=== PATIENT | female | born 1990 | race Caucasian/White ===

== ENCOUNTER → 2019-12-05 10:12 | Outpatient (CLI) | payer BC, SELFPAY ==
--- NOTE | ~2019-12-05 | US_ITS ---
EXAMINATION: US OB transvaginal DATE: 12/05/2019 10:36 INDICATION: First trimester dating TECHNIQUE: Real-time pelvic transabdominal and transvaginal ultrasound was performed. COMPARISON: None. FINDINGS: The uterus measures 8.1 x 4.0 x 5.1 cm. There is no intrauterine gestational sac. There is however a gestational sac of the left adnexa. A yolk sac is identified. heart motion is identi fied measuring 185 beats per minute (bpm) by M-mode Doppler. The crown rump length measures 2.2 cm , which correlates with an estimated gestational age of 8 weeks and 6 day(s) (+/-) 6 day(s). The right ovary measures 2.2 x 1.8 x 2.9 cm. The left ovary measures 4.7 x 3.5 x 3.7 cm. There is a s mall volume of free fluid in the pelvis. IMPRESSION: 1. Ectopic of the left adnexa. These findings were discussed with Kymberly Mcclelland at 1045 hours on 12/05/2019. Reviewed, dictated and finalized at location A. IMPRESSION: 1. Ectopic of the left adnexa. These findings were discussed with Dr. Dania Burrows M.D. at 1045 hours on 12/05/2019.
== END ==
PROVIDERS: Visit Provider Obstetrics & Gynecology
DX: O26.851 Spotting complicating pregnancy, first trimester (principal); Z3A.00 Weeks of gestation of pregnancy not specified
CPT/HCPCS: 76817

== ENCOUNTER 2019-12-05 12:09 | Day surgery (SDC) | payer BC, SELFPAY ==
[2019-12-05] VITALS (10 sets, daily range): BP systolic 103–121; BP diastolic 57–65; PULSE 57–91; RESP 12–20; TEMP 36.4–37.6; O2SAT 95–100; BMI 32.1
--- NOTE | 2019-12-05 12:21 | PM.IMHP ---
H&P: HPI History of Present Illness Chief complaint: Ectopic Narrative: Mel Gold is a 29 year old female , called office today with c/o of LLQ pain and spotting. Per pt her Normal LMP on 09/28/2019 and had light cycle on 10/27/2019 . pt felt nauseated and so took home UPT on 11/29/2019 and positive and called office on 12/01 with spotting. Pt had B HCG Quant [place] 12/01 and was [id number]. and blood type A positive and so US was ordered. Pt went for US today and s/o Gestational sac in left adenexa with FHT of 185. No gestational sac in uterus.Pt was seen in office by my partner Dr Cornejo in office and was informed about the result.Treatment options discussed with pt by Dr Cornejo and will proceed with Daignostic laproscopy , treatment of ectopic vs laprotomy. Pt agreed with plan and was snet to hospital. I came and evaluated pt. Pt c/o spotting an LLQpain. denies fever/chills/SOB. Again treatment options discussed and pt opted for surgery. Surgery discussed in detail as well as risk of procedure i.e infection, bleeding may require BT, injury to bowel/bladder/ureter/ adjacent structure, anesthesia risk, can be life threatening. Pt voiced verbalized. All question answered and informed consent obtained. Review of Systems Constitutional: Constitutional: Reports no additional constitutional complaints Cardiovascular: Cardiovascular: Reports no additional cardiovascular complaints Respiratory: Respiratory: Reports no additional respiratory complaints Gastrointestinal: Gastrointestinal: Reports no additional gastrointestinal complaints Genitourinary: Genitourinary: Reports as per HPI Meds Home Medications and Allergies Home Medications Medication Instructions Recorded Confirmed Type PNV cmb#95-ferrous fumarate-FA 1 tablet PO DAILY 12/05/19 12/05/19 History [] cetirizine [Zyrtec] 10 mg PO DAILY 12/05/19 12/05/19 History docusate sodium [Colace] 100 mg PO DAILY 12/05/19 12/05/19 History ferrous sulfate 325 mg PO DAILY 12/05/19 12/05/19 History omega 5-wgn-axh-fish oil [Fish Oil] 1 cap PO DAILY 12/05/19 12/05/19 History Allergies Allergy/AdvReac Type Severity Reaction Status Date / Time No Known Allergies Allergy Verified 12/05/19 12:32 Exam Const: General: comfortable and no acute distress Resp: Effort & Inspection: normal respiratory effort Auscultation: clear to auscultation bilaterally Cardio: Rate: regular rate Rhythm: regular rhythm GI: GI Palp: Yes Soft to palpation and Yes Tenderness to palpation present (GI) (LLQ) Assessment and Plan Assessment and plan (1) Ectopic : Onset Date: ~12/05/19 Code(s): O00.90 - Unspecified ectopic without intrauterine Status: Acute Assessment and Plan: will proceed with Diagnostic laprocopy, treatment of ectopic vs laprotomy.
[2019-12-05] MEDS: LACTATED RINGERS 1,000 ML 30 ML IV CONT ×2 (12:35→15:15)
--- NOTE | 2019-12-05 12:44 | WPDANESEPPF ---
Anes - Initial Pre Proc Eval Procedure: Operation Date: 12/05/19 12:30 Proposed Procedures p Diagnostic Laparoscopy, Possible Left Salpingectomy - Ashleigh Walker MD Date/Time: 12/05/19 12:44 Surgeon: Ashleigh Walker MD Pre Op Diagnosis: Ectopic Patient Data Age: 29 Gender: F Height: Weight: Allergies Allergy/AdvReac Type Severity Reaction Status Date / Time No Known Allergies Allergy Verified 12/05/19 12:32 Patient hx anesthesia problems: none Family hx anesthesia problems: none Anes - Eval Final PreProcedure Day of Procedure 12/05/19 12:44 Patient weight: normal Heart: regular rate and rhythm Lungs: clear to auscultation and normal air movement Airway: Mallampati scale class II Neurological: alert and oriented Last oral intake: 4 hours ASA classification: II Emergent: no Anesthetic plan: proceed Anesthesia type and monitoring: general ETT Informed Consent: The patient's anesthetic plan and its attendant risks and benefits were discussed with the patient/family/POA. Questions were solicited and answers provided to the satisfaction of the patient/family/POA.
[2019-12-05 12:48] LABS: Hematocrit 39.7 % (37.0-47.0); Hemoglobin 13.2 g/dL (12.0-15.0); Mean Corpuscular HGB Conc 33.2 g/dl (32-36); Mean Corpuscular Hemoglobin 30.3 pg (26-34); Mean Corpuscular Volume 91.1 fl (80-100); Mean Platelet Volume 12.9 fl (7.4-10.4); Platelet Count Result 145 k/mm3 (150-375); Red Blood Count 4.36 M/mm3 (4.2-5.4); Red Cell Distribution Width 11.7 % (11.5-14.5); White Blood Count 6.8 K/mm3 (4.5-10.0)
--- NOTE | 2019-12-05 14:55 | SUR.OPER ---
DIAG. LAP TO OPEN AT 4175
--- NOTE | 2019-12-05 14:57 | SUR.OPER ---
NO LOCAL GIVEN
--- NOTE | 2019-12-05 15:05 | P.OPB_ITS ---
Procedure Note - Brief Procedure Note - Brief Date of procedure: 12/05/19 Pre-op diagnosis: Ectopic Post-op diagnosis: same Procedure performed: attempeted diagnostic laproscopy converted to laprotomy, left salpingectomy with ectopic Implants: None Anesthesia: GLMA Surgeon: Ashleigh Walker MD Filter Assembler: Dr Flores Estimated blood loss (mL): 100 IV fluids (mL): 1,000 Drains: No Packing: No Pathology: yes (left fallopian tube with ectopic) Complications: No immediate complications Condition: stable Disposition: floor
--- NOTE | 2019-12-05 15:08 | PM.PROC ---
Procedure Note - Detailed Date of procedure: 12/06/19 Pre-op diagnosis: Ectopic Post-op diagnosis: same Procedure performed: Attempted laproscopy, converted to laprotomy, Left salpingectomy Description of procedure: Pt taken to OR and General anesthesia instituted.Pt given dorsa lithotomy position. Pt prepped and drapped in sterile fashion. Time out performed. Sterile speculum placed in vagina and anterior lip of cervix caught with single tooth tenaculum. Hulka retractor placed for means of uterine manipulation..Tenaculum and speculum removed. Her catheter placed under sterile technique.Attention turned to Abdomen. Infraumbilial incision made with scalpel and with help of veres needle after confirming placement in cavity with saline drop. Puemoperitoneum acheived. And 5 millimeter trocar under direct visualization was introduced. trocar sleeve removed and laparoscope introduced. At this time noted that the laparoscope was still in the subcutaneous layer closed the fascia so the longer trocar was introduced under direct visualization . still having difficulty to visualize the abdominal cavity and it the thought process was that the laparoscope was not into the abdominal cavity. at this time thought that we could approach to the left upper quadrant and a 5 millimeters trocar introduced under direct visualization. Still having difficulty to visualize the abdominal cavity.Dr Cornejo was called and she also noticed difficulty and so at this time decided to convert into the laparotomy. Pfannenstiel skin incision was made with the scalpel and carried to the underlying layer of fascia fascia was incised in the midline and extended laterally with the help of scissors. Rectus muscle seperated in midline and and peritoneum identified and peritoneal cavity entered bluntly and was extended superiorly and inferiorly. Patient was given extended but position at this time head of the uterine manipulator uterus was pushed upwards and towards incision opening and the left fallopian tube was followed. At this time the ectopic the was noted in the left fallopian tube . a small incision was then made on the left fallopian tube with bovie on the antimesenteric side and fetus delivered .With help of tissue forceps gently tried to remove rest of product , and the fallopian tube started bleeding more and than decision made for salpingectomyLeppy forcept x 2 applied on fallopian tube close to cornua and tube resected and secured with O Vicryl. and excellent hemostasis noted. Uterus appeared to be within normal left followed by left ovary and right fallopian tube and right ovary appeared to be normal. patient was reversed from the trendelenberg position .Hemostatic agent applied on operative site. fascia was approximated with 0 Polysorb. Subcutaneous layer was approximated with 3-0 Polysorb. Skin was approximated with 4 -0Monocryl and Dermabond. Laparoscopic port site was also approximated with the Erin Monocryl and Dermabond. The uterine manipulator was removed from the uterus. Her catheter was removed. Patient tolerated procedure well. Sponge lap needle counts correct x2. Patient was taken to the recovery room awake in stable condition. Anesthesia: GLMA Surgeon: Ashleigh Walker MD Airline Security Representative: Dr Cornejo Estimated blood loss (mL): 100 IV fluids (mL): 1,000 Urine output (mL): 100 Drains: No Packing: No Pathology: yes (left fallopian tube) Complications: No immediate complications Condition: stable Disposition: PACU Findings: left fallopian tube with ectopic
[2019-12-05] MEDS: ceFAZolin 2 GM/D5W 50 ML 2 GM/50 ML BAG IVPB (15:30)
--- NOTE | 2019-12-05 17:35 | ADMGEN ---
This patient, Mel Gold, was admitted to 2 Medical Room 259-01. Patient/family oriented to hospital policies and general routines including ID bracelet, bed and alarms, visiting hours, pain management, procedures, bathroom and other care routines, personal items, smoking policy, room service/diet, and visiting hours. Valuables list has been completed. Information on how to activate the Rapid Response Team has been discussed. Patient/Family are encouraged to report perceived risks to care and to ask questions if they do not understand what they are told or what they should do.
[2019-12-05] MEDS: DOCUSATE SODIUM 100 MG CAPSULE PO (17:55)
[2019-12-05] MEDS: ONDANSETRON INJ 4 MG/2 ML VIAL IV PUSH (18:00)
[2019-12-05] MEDS: DEXTROSE 5%/0.45% SOD CHL 1,000 ML 125 ML IV CONT (18:15)
[2019-12-06] MEDS: DEXTROSE 5%/0.45% SOD CHL 1,000 ML 125 ML IV CONT ×2 (02:11→10:17)
[2019-12-06 05:17] LABS: Basophils Percent Auto 0.1 % (0.2-1.2); Eosinophils Percent Auto 0.2 % (0-4.4); Hematocrit 32.2 % (37.0-47.0); Hemoglobin 10.7 g/dL (12.0-15.0); Immature Granulocyte Absolute 0.07 K/mm3 (0.00-0.031); Immature Granulocyte Percent A 0.6 % (0-0.5); Lymphocytes Absolute Auto 1.31 K/mm3 (0.9-3.2); Lymphocytes Percent Auto 10.8 % (18.3-44.2); Mean Corpuscular HGB Conc 33.2 g/dl (32-36); Mean Corpuscular Hemoglobin 30.6 pg (26-34); Mean Platelet Volume 12.9 fl (7.4-10.4); Monocytes Absolute Auto 0.7 K/mm3 (0.1-0.6); Neutrophils Percent Auto 82.3 % (45.5-73.1); Platelet Count Result 138 k/mm3 (150-375); Red Cell Distribution Width 11.6 % (11.5-14.5); White Blood Count 12.1 K/mm3 (4.5-10.0)
[2019-12-06 05:27] LABS: Alanine Aminotransferase 15 U/L (4-35); Albumin Level 3.4 g/dL (3.5-5.1); Alkaline Phosphatase 42 U/L (38-126); Aspartate Amino Transferase 19 U/L (14-36); Bilirubin,Total 0.6 mg/dL (0.2-1.3); Blood Urea Nitrogen 7 mg/dL (7-17); Calcium 8.4 mg/dL (8.4-10.2); Carbon Dioxide 27 mmol/L (22-30); Chloride 103 mmol/L (98-107); Estimated CRCL calculation 164 ml/min; Estimated Glomerular Filt Rate > 60; Glucose 111 mg/dL (65-105); Potassium 3.6 mmol/L (3.4-5.0); Sodium 134 mmol/L (137-145)
[2019-12-06 06:00] VITALS: BP 107/61; PULSE 61; RESP 21; TEMP 36.6; O2SAT 100
--- NOTE | 2019-12-06 08:33 | PM.GYNPNOP ---
INVASIVE MANAGER - A/P Postoperative Procedures: Procedures Operation Date: 12/05/19 12:30 Actual Procedures Side Surgeon p Attempted Diagnostic Laparoscopy, Open Left Salpingectomy Left Ashleigh Walker MD Postoperative day: 1 Postoperative status: doing well Postoperative plan: advance diet and discharge Time Spent With Patient Time: Total time spent is greater than 50% in coordination of care (as documented) at patient's floor/unit and/or counseling patient: Time with patient: 15 - 25 minutes INVASIVE MANAGER- PN:Subj Post-Op Subjective Date/time seen: 12/06/19 08:33 Subjective: patient reports feeling better, pain is well controlled and patient is tolerating oral intake Review of Systems Constitutional: Constitutional: Reports no additional constitutional complaints Cardiovascular: Cardiovascular: Reports no additional cardiovascular complaints Respiratory: Respiratory: Reports no additional respiratory complaints Gastrointestinal: Gastrointestinal: Reports no additional gastrointestinal complaints Genitourinary: Genitourinary: Reports no additional female genitourinary complaints Exam Const: General: comfortable, no acute distress, alert and awake Resp: Auscultation: clear to auscultation bilaterally Cardio: Rate: regular rate GI: Auscultation: normal bowel sounds Other: Incision: C/D/I INVASIVE MANAGER - PN: Obj Data Vital Signs Vital Signs: Vital Signs - 24 hr 12/05/19 15:05 12/05/19 15:20 12/05/19 15:35 Temperature 36.7 C Pulse Rate 61 59 L 57 L Respiratory Rate 12 12 12 Blood Pressure 109/58 L 109/60 107/57 L Pulse Oximetry 100 97 97 12/05/19 15:50 12/05/19 16:05 12/05/19 16:37 Temperature 37.2 C Pulse Rate 76 60 64 Respiratory Rate 12 12 15 Blood Pressure 109/58 L 115/65 Pulse Oximetry 95 97 99 12/05/19 16:52 12/05/19 17:25 12/05/19 18:25 Temperature 37.1 C 37.4 C 37.6 C H Pulse Rate 67 74 90 Respiratory Rate 16 16 18 Blood Pressure 117/61 103/65 121/65 Pulse Oximetry 100 100 98 12/05/19 22:00 12/06/19 06:00 Temperature 36.4 C L 36.6 C Pulse Rate 91 61 Respiratory Rate 20 21 H Blood Pressure 108/58 L 107/61 Pulse Oximetry 98 100 Intake/Output Intake/Output: Intake & Output 12/03/19 12/04/19 12/05/19 12/06/19 23:59 23:59 23:59 23:59 Intake Total 170 1800 Output Total 100 800 Balance 70 1000 Meds/Results Medications: Active Medications Generic Name Dose Route Start Last Admin Trade Name Freq PRN Reason Stop Dose Admin Acetaminophen 650 mg 12/05/19 15:12 Tylenol Tablet PO Q6H PRN Mild Pain (1-3) Hydrocodone Bitart/Acetaminophen 1 tab 12/05/19 15:12 12/06/19 07:16 Coolidge 10-325 Mg PO 1 tab Q3H PRN Administration Pain Rated 7-10 Docusate Sodium 100 mg 12/05/19 17:00 12/05/19 17:55 Colace Capsule PO 100 mg BID LACY Administration Hydromorphone HCl 1 mg 12/05/19 19:30 Dilaudid Inj IV PUSH Q3H PRN Pain Rated 7-10 Dextrose/Sodium Chloride 1,000 mls @ 125 mls/hr 12/05/19 15:15 12/06/19 02:11 Dextrose 5% Sodium Chloride 0.45% IV CONT 125 mls/hr .Q8H LACY Administration Ibuprofen 600 mg 12/05/19 15:12 Motrin PO Q6H PRN Cramping Naloxone HCl 0.1 mg 12/05/19 15:12 Narcan IV PUSH Q2M PRN Opiate Reversal Ondansetron HCl 4 mg 12/05/19 15:12 12/05/19 18:00 Zofran Inj IV PUSH 4 mg Q6H PRN Administration Nausea Simethicone 80 mg 12/05/19 15:12 Mylicon PO Q2H PRN Gas Labs CBC & Chem 7: 12/06/19 04:57 12/06/19 04:57 Labs: Laboratory Results - last 24 hr 12/05/19 12/05/19 12/05/19 12:29 12:29 12:29 WBC 6.8 RBC 4.36 Hgb 13.2 Hct 39.7 MCV 91.1 MCH 30.3 MCHC 33.2 RDW 11.7 Plt Count 145 L MPV 12.9 H Immature Gran % (Auto) Neut % (Auto) Lymph % (Auto) [place] % (Auto) Eos % (Auto) Baso % (Auto) Lymph # (Auto) [place] # (Auto) Eos # (Auto) Baso # (Aut
--- NOTE | 2019-12-06 08:34 | PM.DS ---
DS: Diagnosis Admitting Diagnosis Admitting Diagnosis: Unspecified ectopic without intrauterine DS: Summary Hospital Course Reason for hospitalization: Ectopic Hospital Course: Pt underwent Laprotomy and left salpingectomy for ectopic Time spent discussing smoking cessation with patient: more than 10 minutes Status at Discharge Functional status at discharge: independent ambulation Time Spent with Patient Time attestation: Total time spent providing and/or coordinating discharge services: Time spent: Less than 30 minutes Specific discharge activities: Pelvic rest DS: Data Data Completed and Pending Pending studies at discharge: Pending at discharge 12/05/19 14:44 Surgical [PTH] Routine Labs on day of discharge: Labs from last 24 hours 12/06/19 12/06/19 12/05/19 04:57 04:57 12:29 WBC 12.1 H RBC 3.50 L Hgb 10.7 L Hct 32.2 L MCV 92.0 MCH 30.6 MCHC 33.2 RDW 11.6 Plt Count 138 L MPV 12.9 H Immature Gran % (Auto) 0.6 H Neut % (Auto) 82.3 H Lymph % (Auto) 10.8 L [place] % (Auto) 6.0 Eos % (Auto) 0.2 Baso % (Auto) 0.1 L Lymph # (Auto) 1.31 [place] # (Auto) 0.7 H Eos # (Auto) 0.0 Baso # (Auto) 0.0 Abs Immat Gran (auto) 0.07 H Absolute Neuts (auto) 10.0 H Absolute Nucleated RBC 0.0 Nucleated RBC % 0.0 Sodium 134 L Potassium 3.6 Chloride 103 Carbon Dioxide 27 BUN 7 Creatinine 0.50 L Estim Creat Clear Calc 164 Estimated GFR > 60 Glucose 111 H Calcium 8.4 Total Bilirubin 0.6 AST 19 ALT 15 Alkaline Phosphatase 42 Total Protein 6.0 L Albumin 3.4 L Beta HCG, Quant > 53409.00 Blood Type Antibody Screen 12/05/19 12/05/19 12:29 12:29 WBC 6.8 RBC 4.36 Hgb 13.2 Hct 39.7 MCV 91.1 MCH 30.3 MCHC 33.2 RDW 11.7 Plt Count 145 L MPV 12.9 H Immature Gran % (Auto) Neut % (Auto) Lymph % (Auto) [place] % (Auto) Eos % (Auto) Baso % (Auto) Lymph # (Auto) [place] # (Auto) Eos # (Auto) Baso # (Auto) Abs Immat Gran (auto) Absolute Neuts (auto) Absolute Nucleated RBC Nucleated RBC % Sodium Potassium Chloride Carbon Dioxide BUN Creatinine Estim Creat Clear Calc Estimated GFR Glucose Calcium Total Bilirubin AST ALT Alkaline Phosphatase Total Protein Albumin Beta HCG, Quant Blood Type A Positive Antibody Screen Negative Discharge Plan Discharge Patient Disposition: Home, Self-Care Follow-up/Referrals: Ashleigh Walker MD [Physician] - Discharge Medications: New hydrocodone-acetaminophen [Thayer] 10-325 mg Tablet 1 tab PO Q3H PRN (Reason: Pain Rated 7-10) Qty: 20 RF: 0 docusate sodium 100 mg Capsule 100 mg PO BID Qty: 60 RF: 0 ibuprofen 600 mg Tablet 600 mg PO Q6H PRN (Reason: Cramping) Qty: 60 RF: 0 Continued ferrous sulfate 325 mg (65 mg iron) Tablet 325 mg PO DAILY RF: 0 docusate sodium [Colace] 100 mg Capsule 100 mg PO DAILY RF: 0 omega 9-xke-zaw-fish oil [Fish Oil] 1,000 mg (120 mg-180 mg) Capsule 1 cap PO DAILY RF: 0 PNV cmb#95-ferrous fumarate-FA [] 28 mg iron- 800 mcg Tablet 1 tablet PO DAILY RF: 0 spironolactone 100 mg PO DAILY RF: 0 Discontinued cetirizine [Zyrtec] 10 mg Tablet 10 mg PO DAILY RF: 0 Primary Care Provider: UNKNOWN,DOCTOR Attending physician on admission: Ashleigh Walker
[2019-12-06] MEDS: DOCUSATE SODIUM 100 MG CAPSULE PO (09:24)
[2019-12-06 14:00] VITALS: BP 118/79; PULSE 72; RESP 16; TEMP 36.7; O2SAT 98
== END 2019-12-06 17:25 | disposition home or self-care (01) ==
LOC: ANHSURGERY 12:54 → ANH2MED 16:35
PROVIDERS: Visit Provider Obstetrics & Gynecology
PROC: (CPT 49320; principal; 2019-12-05 12:30)
DX: O00.102 Left tubal pregnancy without intrauterine pregnancy (principal); Z53.31 Laparoscopic surgical procedure converted to open procedure
CPT/HCPCS: 59120; 36415; 80053; 84702; 85025; 85027; 86850; 86900; 86901; 88305; A9270; J0330; J0690; J1100; J1885; J2250; J2405; J2704; J2710; J3010; J7030; J7120

== ENCOUNTER 2020-10-30 09:26 | Outpatient (CLI) | payer OTHER, SELFPAY ==
[2020-10-30 10:08] LABS: Hemoglobin 12.6 g/dL (12.0-15.0); Immature Platelet Fraction Pct 14.1 % (0.9-11.2); Mean Corpuscular Hemoglobin 30.7 pg (26-34); Mean Corpuscular Volume 87.8 fl (80-100); Mean Platelet Volume 13.3 fl (7.4-10.4); Platelet Count Result 174 k/mm3 (150-375); Red Cell Distribution Width 11.8 % (11.5-14.5); White Blood Count 6.1 K/mm3 (4.5-10.0)
[2020-10-30 10:34] LABS: Beta HCG Quantitative < 2.39 mIU/ML
[2020-10-30 11:46] LABS: Free T4 Free Thyroxine 0.91 ng/mL (0.78-2.19)
== END 2020-10-30 09:27 | disposition home or self-care (01) ==
PROVIDERS: Visit Provider Obstetrics & Gynecology
DX: Z01.419 Encounter for gynecological examination (general) (routine) without abnormal findings (principal); R53.83 Other fatigue
CPT/HCPCS: 36415; 84439; 84443; 84702; 85027; 85055

== ENCOUNTER 2021-09-02 14:34 | Emergency (ER) | payer OTHER, SELFPAY ==
[2021-09-02 15:08] VITALS: BP 139/93; PULSE 85; RESP 20; TEMP 36.5; O2SAT 99
--- NOTE | 2021-09-02 16:27 | ED.URI ---
HPI - URI/Sore Throat General Chief Complaint: Upper Respiratory Infection Stated Complaint: headache,back and neck pain Time Seen by Provider: 09/02/21 16:27 Source: patient and RN notes reviewed Mode of arrival: ambulatory Limitations: no limitations History of Present Illness HPI Narrative: 30-year-old female presents concern for 4-day history of sore throat, nasal congestion, headache, body aches, sinus pressure. Reports she is taken turmeric, elderberry, NyQuil with no relief. She denies shortness of breath, loss of taste or smell. MD elicited complaint: cough and other (Headache) Related Data Allergies Allergy/AdvReac Type Severity Reaction Status Date / Time No Known Allergies Allergy Verified 09/02/21 16:23 Review of Systems Review of Systems: CONSTITUTIONAL: Reports malaise, fatigue. Denies chills, sweats, or fever. EYES: Denies visual changes, redness, or discharge. ENT: Reports rhinorrhea, congestion, sinus pain, otalgia and sore throat. CARDIOVASCULAR: Denies chest pain, palpitations, or edema. RESPIRATORY: Denies cough. Denies dyspnea. GASTROINTESTINAL: Denies abdominal pain, nausea, vomiting, diarrhea SKIN: Denies rash or itching. MUSCULOSKELETAL: Reports myalgia. NEUROLOGIC: Reports headache. All systems reviewed & are unremarkable except as noted in HPI and below PMFSH Past Medical History Medical History Ectopic (~12/05/19) Surgical History Surgical History History of salpingectomy Family History Family History Mother Diabetes mellitus Father Skin cancer Social History Social History Smoking status: Current every day smoker Tobacco type: e-cigarettes/vaping Alcohol intake: current Substance use: never Gender identity (if verbalized by the patient): Female Spiritual care concerns: No Agree to blood products: Yes Comments At time of signature, agree with nursing past medical, surgical, social and family history. There is no relevant family history pertinent to the presenting complaint Exam Narrative: GENERAL: Nontoxic-appearing, well-nourished, and in no acute distress. HEAD: Normocephalic EYES: PERRLA, conjunctivae clear ENT: Nares clear, clear discharge. Mucous membranes moist. TM pearly shaikh with sharp light reflex bilaterally; no tragal tenderness. Oropharynx not erythematous without lesions. Tonsils not enlarged and without exudate, no drooling, no hoarseness, no trismus, uvula midline. NECK: Supple. No lymphadenopathy CHEST: Clear to auscultation, breath sounds equal. No wheezing, rhonchi, rales, or stridor. No respiratory distress, speaks in full sentences. HEART: Regular rate and rhythm. No murmur heard. SKIN: Warm, dry, no rash. NEURO: Alert and oriented x3. PSYCH: Normal mood and affect Course Course Emergency Course: Patient is aware of diagnosis, understands and agrees to treatment plan. Anticipatory guidance given. Patient agrees to follow-up as directed and is aware of reasons to seek care at the emergency department. Portions of this record may have been created with voice recognition software Vital Signs Vital signs: Vital Signs Temperature 97.7 F 09/02/21 15:08 Pulse Rate 85 09/02/21 15:08 Respiratory Rate 20 09/02/21 15:08 Blood Pressure 139/93 H 09/02/21 15:08 Pulse Oximetry 99 09/02/21 15:08 Temperature 97.7 F 09/02/21 15:08 Pulse Rate 85 09/02/21 15:08 Respiratory Rate 20 09/02/21 15:08 Blood Pressure 139/93 H 09/02/21 15:08 Pulse Oximetry 99 09/02/21 15:08 Reviewed. Patient has been instructed to follow up with her primary care provider within the next week regarding her elevated blood pressure today. MDM - URI/Sore Throat MDM Narrative Medical decision making narrativ
== END 2021-09-02 16:56 | disposition home or self-care (01) ==
PROVIDERS: Emergency Provider Nurse Practitioner
DX: U07.1 COVID-19 (principal); F17.290 Nicotine dependence, other tobacco product, uncomplicated
CPT/HCPCS: 87426; 99213; C9803; G0463

== ENCOUNTER 2022-07-06 08:46 | Inpatient (IN) | payer OTHER, SELFPAY ==
[2022-07-06] VITALS (158 sets, daily range): BP systolic 89–142; BP diastolic 46–85; PULSE 76–128; RESP 10–18; TEMP 36.3–37; O2SAT 92–100; BMI 43.0
--- NOTE | 2022-07-06 08:46 | LDADM ---
This patient, Mel Gold, was admitted to Labor/Delivery/Recovery 106 on 07/06/22 at 08:46. Plans for labor, pain management and were discussed with patient. Patient/family oriented to hospital policies and general routines including ID bracelet, bed and alarms, visiting hours, pain management, procedures, bathroom and other care routines, personal items, smoking policy, room service/diet and guest tray routines, security routines, and visiting hours. Patient/Family are encouraged to report perceived risks to care and to ask questions if they do not understand what they are told or what they should do. See OBIX for further documentation.
--- OUTSIDE RECORDS SUMMARY | 2022-07-06 09:28 | XMS_ITS ---
:1990 Author Care Team Providers Name Role Phone Jeffry Cristiane Mortensen Primary Care Provider Unavailable Allergies Code Code System Name Reaction Severity Status Onset NKDA ? Medications Name Status Start Date Stop Date ? ? amoxicillin 500 mg capsule Completed ? 10/20 amoxicillin 875 mg tablet Completed ? 2018 amoxicillin 875 mg-potassium clavulanate 125 mg tablet Completed ? 03/14/2019 Aurovela Fe 1-20 (28) 1 mg-20 mcg (21)/75 mg (7) tablet Active ? Not available TK 1 T PO D azelastine 137 mcg (0.1 %) nasal spray aerosol Completed ? 05/24/2018 azithromycin 250 mg tablet Completed ? 05/24 clindamycin 1 %-benzoyl peroxide 5 % topical gel with Active ? Not available pump doxycycline hyclate 100 mg capsule Completed ? 05/24/2018 doxycycline hyclate 100 mg tablet Active ? Not available Take 1 tablet twice a day by oral route for 7 days. fluticasone propionate 50 mcg/actuation nasal spray,suspension A ctive ? Not available Calvin 1 spray every day by intranasal route. methylprednisolone 4 mg tablets in a dose pack Active ? Not available Take 1 dose pk by oral route as directed. mupirocin 2 % topical ointment Completed ? 0 10/20/2016 oxycodone-acetaminophen 10 mg-325 mg tablet Active ? Not available TK 1 T PO Q 6 H PRN P prednisone 20 mg tablet Completed ? 05/24/20 18 spironolactone 100 mg tablet Active ? Not available Diana 3 mg-0.03 mg tablet Active ? Not av ailable tretinoin 0.05 % topical cream Active ? N ot available KELSEY AA ON FACE QHS Ventolin HFA 90 mcg/actuation aerosol inhaler Completed ?
--- NOTE | 2022-07-06 09:35 | P.HP_ITS ---
H&P: HPI History of Present Illness Date/Time: 07/06/22 09:35 Chief Complaint: Leaking fluid Narrative: Vipul 31-year-old 2 para 0 whose last menstrual period was 09/28/2021, EDC is 07/05/2022, confirmed by 7 week ultrasound presents with leaking fluid for about 14hours. She has some week ultrasound confirming dates at 36 weeks the baby was estimated about a lb so large babies expected. A forebag was felt and rupture of membranes for the rest of the way showed a moderately heavy meconium. heart tones presently are reassuring. She is negative for group B strep PMFSH Past Medical History Medical History Ectopic (~12/05/19) Surgical History Surgical History History of salpingectomy Family History Family History Mother Diabetes mellitus Father Skin cancer Social History Social History Smoking status: Current every day smoker Tobacco type: e-cigarettes/vaping Alcohol intake: current Substance use: never Gender identity (if verbalized by the patient): Female Spiritual care concerns: No Agree to blood products: Yes Meds Home Medications and Allergies Home Medications Medication Instructions Recorded Confirmed Type fluticasone propionate 50 1 spray intranasal PRN PRN 06/13/22 06/13/22 History mcg/actuation nasal seasonal allergies spray,suspension (Flonase Allergy Relief) loratadine 10 mg tablet (Claritin) 10 mg PO DAILY 06/13/22 06/13/22 History prenat.vits,kayli,cgz-mehw-ademg 1 tablet PO DAILY 06/13/22 06/13/22 History Allergies Allergy/AdvReac Type Severity Reaction Status Date / Time No Known Allergies Allergy Verified 09/02/21 16:23 Vital Signs Vital Signs - 24 hr 07/06/22 09:31 Pulse Rate 103 H Blood Pressure 129/83 Exam Const: General: cooperative, healthy appearing and comfortable Nutritional Appearance: overweight Orientation/consciousness: oriented to person, oriented to place and oriented to time HENMT: Head: normal to inspection Resp: Effort & Inspection: normal respiratory effort Cardio: Rate: regular rate Rhythm: regular rhythm Heart sounds: S1 elissa l heart sound present and S2 normal heart sound present GI: Inspection: normal to inspection ( gravid soft uterus) Auscultation: normal bowel sounds : Speculum Exam - Vagina: normal appearance of the vagina Speculum Exam - Cervix: normal appearance of the cervix ( cervix 2/90/2. AROM meconium. FHTs somewhat flat but reactive to exam) Assessment and Plan Assessment and plan (1) Term : Code(s): Z34.90 - Encounter for supervision of normal , unspecified, unspecified trimester Status: Acute Plan spontaneous vaginal delivery will be attempted. This is an expected large baby with meconium and Peds of been made aware. Will be prepared for possible section if necessary
[2022-07-06] MEDS: LACTATED RINGERS 1,000 ML 125 ML IV CONT ×4 (09:52→18:40)
[2022-07-06 10:09] LABS: Basophils Percent Auto 0.2 % (0.2-1.2); Eosinophils Percent Auto 0.3 % (0-4.4); Hemoglobin 11.1 g/dL (12.0-15.0); Immature Granulocyte Absolute 0.07 K/mm3 (0.00-0.031); Immature Granulocyte Percent A 0.7 % (0-0.5); Lymphocytes Absolute Auto 1.33 K/mm3 (0.9-3.2); Lymphocytes Percent Auto 13.2 % (18.3-44.2); Mean Corpuscular HGB Conc 33.6 g/dl (32-36); Mean Corpuscular Hemoglobin 30.1 pg (26-34); Mean Corpuscular Volume 89.4 fl (80-100); Mean Platelet Volume 13.5 fl (7.4-10.4); Monocytes Absolute Auto 0.5 K/mm3 (0.1-0.6); Monocytes Percent Auto 5.2 % (2.6-8.5); Neutrophils Absolute Auto 8.1 K/mm3 (1.3-6.7); Neutrophils Percent Auto 80.4 % (45.5-73.1); Platelet Count Result 115 k/mm3 (150-375); Red Blood Count 3.69 M/mm3 (4.2-5.4); Red Cell Distribution Width 14.1 % (11.5-14.5); White Blood Count 10.1 K/mm3 (4.5-10.0)
[2022-07-06] MEDS: AMPICILLIN 2 GM/NS 100 ML 2 GM/100 ML BAG IVPB (11:01)
--- NOTE | 2022-07-06 11:48 | PM.OBPNLAB ---
Pain Control Date/time seen: 07/06/22 11:48 Pain control: tolerating well Comments: fhts better. begin pitocin
[2022-07-06] MEDS: OXYTOCIN 30 UNITS/NS 500 ML 30 UNITS/500 ML BAG 6 UNITS IV CONT (11:53)
--- NOTE | 2022-07-06 14:05 | WPDANESEPP ---
Anes - Eval Pre Procedure Procedure: Labor Epidural Date/Time: 07/06/22 14:05 Surgeon: Hernando Preop Diagnosis: Labor Pain Pre Op Diagnosis: labor Patient Data Age: 31 Gender: F Height: 1.7 m Weight: 124.5 kg Last Vital Signs Temp 36.3 C L 07/06/22 13:00 Pulse 83 07/06/22 14:01 BP 116/55 L 07/06/22 14:01 Pulse Ox 98 07/06/22 14:03 O2 Del Method Room Air 07/06/22 09:55 Allergies Allergy/AdvReac Type Severity Reaction Status Date / Time No Known Allergies Allergy Verified 09/02/21 16:23 Home Medications Medication Instructions Recorded Confirmed Type fluticasone propionate 50 1 spray intranasal PRN PRN 06/13/22 07/06/22 History mcg/actuation nasal seasonal allergies spray,suspension (Flonase Allergy Relief) loratadine 10 mg tablet (Claritin) 10 mg PO DAILY 06/13/22 07/06/22 History prenat.vits,kayli,yos-mluz-jxqzy 1 tablet PO DAILY 06/13/22 07/06/22 History Laboratory Tests 07/06/22 07/06/22 07/06/22 09:39 09:39 09:39 WBC 10.1 K/mm3 H K/mm3 (4.5-10.0) RBC 3.69 M/mm3 L M/mm3 (4.2-5.4) Hgb 11.1 g/dL L g/dL (12.0-15.0) Hct 33.0 % L % (37.0-47.0) MCV 89.4 fl fl (80-100) MCH 30.1 pg pg (26-34) MCHC 33.6 g/dl g/dl (32-36) RDW 14.1 % % (11.5-14.5) Plt Count 115 k/mm3 L k/mm3 (150-375) MPV 13.5 fl H fl (7.4-10.4) Immature Gran % (Auto) 0.7 % H % (0-0.5) Neut % (Auto) 80.4 % H % (45.5-73.1) Lymph % (Auto) 13.2 % L % (18.3-44.2) [place] % (Auto) 5.2 % % (2.6-8.5) Eos % (Auto) 0.3 % % (0-4.4) Baso % (Auto) 0.2 % % (0.2-1.2) Lymph # (Auto) 1.33 K/mm3 K/mm3 (0.9-3.2) [place] # (Auto) 0.5 K/mm3 K/mm3 (0.1-0.6) Eos # (Auto) 0.0 K/mm3 K/mm3 (0-0.3) Baso # (Auto) 0.0 K/mm3 K/mm3 (0.0-0.1) Abs Immat Gran (auto) 0.07 K/mm3 H K/mm3 (0.00-0.031) Absolute Neuts (auto) 8.1 K/mm3 H K/mm3 (1.3-6.7) Absolute Nucleated RBC 0.0 K/mm3 K/mm3 (0.0-0.012) Nucleated RBC % 0.0 % % (0.0-0.2) % Immature Plt Fraction 22.0 % H % (0.9-11.2) RPR Pending Blood Type A Positive Antibody Screen Negative : gestational age () Patient hx anesthesia problems: none Family hx anesthesia problems: none Results Review: All pre-operative results and documents have been reviewed as part of the pre-operative evaluation. [facility] Past Medical History Medical History Ectopic (~12/05/19) Surgical History Surgical History History of salpingectomy Family History Family History Mother Diabetes mellitus Father Skin cancer Social History Social History Smoking status: Never smoker Tobacco type: e-cigarettes/vaping Second hand tobacco smoke exposure: No Alcohol intake: current Substance use: never Has the Lack of Transportation Kept You From Medical Appointments or From Getting Medications?: No Within the Past 12 Months, Were You Worried Whether Your Food Would Run Out Before You Got Money to Buy More?: Never True What is Your Housing Situation Today?: I Have Housing Are You Worried That in the Next 2 Months, You May Not Have Your Own Housing to Live In?: No Do You Have Trouble Paying Your Heating Or Electricity Bill?: No Do You Have Trouble Paying For Medicines?: No Are You Currently Unemployed and Looking for Work?: No Highest Level of Education Completed: High School Diploma/GED Do You Have Trouble With Childcare or the Care of a Family Member?: No Gender identity (if verbalized by the patient): Female Spiritual ca
--- NOTE | 2022-07-06 16:24 | PM.OBPNLAB ---
Pain Control Date/time seen: 07/06/22 16:24 Pain control: tolerating well and epidural Pelvic Exam Dilation (cm): 4 Effacement (%): 100 station: -1 Amniotic membrane status: Leaking Contractions Monitor mode: Internal Contraction pattern: Irregular
[2022-07-06] MEDS: ceFAZolin 3 GM/D5W 100 ML 100 ML IVPB (18:44)
[2022-07-06] MEDS: KETOROLAC 15 MG/ML VIAL (*BKC) IV PUSH (19:20)
--- NOTE | 2022-07-06 19:31 | PM.DS ---
DS: Admitting Diagnosis Discharge Date Admitting Diagnosis Ruptured membranes at term with large for gestational age baby DS: Discharge Diagnosis Discharge Diagnosis (1) Term : Code(s): Z34.90 - Encounter for supervision of normal , unspecified, unspecified trimester Status: Acute (2) Anemia: Code(s): D64.9 - Anemia, unspecified Status: Acute DS: Summary Hospital Course Reason for hospitalization: patient was admitted in active labor at 40 weeks gestation Hospital Course: patient was admitted in labor at 40 weeks gestation. She underwent low-transverse section for failure to progress for a [id number] baby. Hospital course was complicated by a postop day 1 hemoglobin which was 5 and half. She was asymptomatic but received 2 doses of packed red blood cells and had a hemoglobin over 7 postop day 2. She was up, voiding without difficulty, ambulating, breast-feeding, in general without complaints. Time Spent with Patient Time attestation: Total time spent providing and/or coordinating discharge services: Exam Const: General: cooperative, healthy appearing and comfortable Nutritional Appearance: average body habitus Orientation/consciousness: oriented to person, oriented to place and oriented to time HENMT: Head: normal to inspection Resp: Effort & Inspection: normal respiratory effort Cardio: Rate: regular rate Rhythm: regular rhythm Heart sounds: S1 normal heart sound present and S2 normal heart sound present GI: Inspection: normal to inspection, incision ( Wound clean dry and intact) and Pannus present DS: Data Data Completed and Pending Labs on day of discharge: Labs from last 24 hours 07/06/22 07/06/22 07/06/22 09:39 09:39 09:39 WBC 10.1 H RBC 3.69 L Hgb 11.1 L Hct 33.0 L MCV 89.4 MCH 30.1 MCHC 33.6 RDW 14.1 Plt Count 115 L MPV 13.5 H Immature Gran % (Auto) 0.7 H Neut % (Auto) 80.4 H Lymph % (Auto) 13.2 L [place] % (Auto) 5.2 Eos % (Auto) 0.3 Baso % (Auto) 0.2 Lymph # (Auto) 1.33 [place] # (Auto) 0.5 Eos # (Auto) 0.0 Baso # (Auto) 0.0 Abs Immat Gran (auto) 0.07 H Absolute Neuts (auto) 8.1 H Absolute Nucleated RBC 0.0 Nucleated RBC % 0.0 % Immature Plt Fraction 22.0 H RPR Pending Blood Type A Positive Antibody Screen Negative Discharge Plan Discharge Attending physician on discharge: Stevenson Germain Discharging Clinician: Stevenson Germain Patient Disposition: Home, Self-Care Activity: may shower, no straining and pelvic rest Diet: heart healthy Wound Care Instructions: follow printed instructions Patient Instructions: Antibiotic Form Stand Alone Forms: General Discharge Information Follow-up/Referrals: Stevenson Germain MD [Physician] - Discharge Medications: New hydrocodone-acetaminophen 5-325 mg tablet 1 tablet PO Q4H PRN (Reason: pain) Qty: 30 0RF No Action #2 Tablet 1 tablet PO DAILY fluticasone propionate [Flonase Allergy Relief] 50 mcg/actuation [place],Suspension 1 spray INTRANASAL PRN PRN (Reason: seasonal allergies) Rx Instructions: administer into each nostril loratadine [Claritin] 10 mg Tablet 10 mg PO DAILY Date of admission: 07/06/22 08:46 Primary Care Provider: PHYSICIAN,GRAPHOTYPE OPERATOR Admitting Provider: Stevenson Germain Attending physician on admission: Stevenson Germain Condition: Stable
--- NOTE | 2022-07-06 19:34 | W.PM.PROC2 ---
Procedure Note - Detailed Date of Procedure 07/06/22 Pre-op Diagnosis labor Post-op Diagnosis Other ( failure to progress) Procedure Performed primary low transverse section Surgeon Stevenson Villegas MD Anesthesia Epidural Indications this is a 31-year-old female who was admitted in active labor at term with suspected very large baby. She got to 6cm but did not progress further. In light of her meconium fluid and the suspected large size of the baby with lack of cervical change she was offered section. Findings 10lb 6oz male the Apgars 9 and 9 at and 5minutes respectively normal-appearing uterus ovaries and tubes Description of Procedure the patient was prepped draped in normal sterile fashion placed in the supine position. Under excellent epidural anesthesia the abdomen was entered in Pfannenstiel fashion progressive layers to fascia. [place] and upward outward fashion. Parietal perineum bulb by Brigitte clamps and by sharp dissection carried superiorly and inferiorly down the bladder. Bladder blade formed. Bladder blade returned. A low-transverse incision made the head delivered in the ROSE position. Anterior posterior shoulder delivered spontaneously. Cord clamped x2 and cut and passed off the table the cry. Placenta delivered intact manually and uterus delivered from the abdomen wrapped in a moist towel. After assuring no membranes or debris remained in the uterus, the uterus was closed continuous running 0 Vicryl from lateral edge to lateral edge. This followed by a 2nd imbricating running locking 0 Vicryl from lateral edge to lateral edge. Hemostasis was assured ovaries appeared within normal limits. Hysterotomy incision appeared hemostatic and was returned to the abdomen. The laps removed and accounted for. The hysterotomy incision inspected 1 last time noted be hemostatic. The fascia closed with continuous running 0 Vicryl from lateral edge to midline bilaterally. Irrigation subcutaneous layer and the skin closed with 4 Monocryl glue. Blood loss was estimated at 740cc by QBL. All sponge, needle, instruments were correct. There were no immediate complications Estimated Blood Loss 740 Drains No Packing No Pathology None sent Complications No immediate complications Condition Stable Disposition Floor
[2022-07-06] MEDS: MORPHINE SULFATE INJ (*CRX) 10 MG/ML AMP 2 MG IV PUSH (21:27)
--- NOTE | 2022-07-06 22:15 | PC.NURSE ---
Patient transferred to post room #282 via (stretcher). Support person present. Oriented to unit, room, information board, rooming in, admission packet and security measures. Patient verbalizes understanding.
[2022-07-06] MEDS: KETOROLAC 30 MG/ML VIAL (*BKC) IV PUSH (23:33)
[2022-07-07] VITALS (14 sets, daily range): BP systolic 88–124; BP diastolic 41–60; PULSE 95–112; RESP 16–18; TEMP 36.2–37.2; O2SAT 95–99
[2022-07-07] MEDS: HYDROcodone/acetaminophen (*CRX) 10-325 MG TABLET 1 TAB PO (05:46)
[2022-07-07] MEDS: DEXTROSE 5%/0.45% SOD CHL 1,000 ML 125 ML IV CONT (05:57)
--- NOTE | 2022-07-07 06:47 | P.PNOB_ITS ---
OB - PN: Subj Subjective Date/time seen: 07/07/22 06:47 Patient comments: no complaints and pain well controlled baby status: doing well OB - PN: Obj Data Labs CBC & Chem 7: 07/06/22 09:39 Labs: Laboratory Results - last 24 hr 07/06/22 07/06/22 09:39 09:39 WBC 10.1 H RBC 3.69 L Hgb 11.1 L Hct 33.0 L MCV 89.4 MCH 30.1 MCHC 33.6 RDW 14.1 Plt Count 115 L MPV 13.5 H Immature Gran % (Auto) 0.7 H Neut % (Auto) 80.4 H Lymph % (Auto) 13.2 L [place] % (Auto) 5.2 Eos % (Auto) 0.3 Baso % (Auto) 0.2 Lymph # (Auto) 1.33 [place] # (Auto) 0.5 Eos # (Auto) 0.0 Baso # (Auto) 0.0 Abs Immat Gran (auto) 0.07 H Absolute Neuts (auto) 8.1 H Absolute Nucleated RBC 0.0 Nucleated RBC % 0.0 % Immature Plt Fraction 22.0 H Blood Type A Positive Antibody Screen Negative OB - PN A/P Plan day: 1 Plan: routine care Time Spent With Patient Time: Total time spent is greater than 50% in coordination of care (as documented) at patient's floor/unit and/or counseling patient: Time with patient: less than 15 minutes Exam 2 Const: General: cooperative, healthy appearing and comfortable Nutritional Appearance: average body habitus Orientation/consciousness: oriented to person, oriented to place and oriented to time HENMT: Head: normal to inspection Resp: Effort & Inspection: normal respiratory effort Cardio: Rate: regular rate Rhythm: regular rhythm Heart sounds: S1 normal heart sound present and S2 normal heart sound present GI: Inspection: normal to inspection and incision (cdi)
[2022-07-07 06:49] LABS: Rapid Plasma Reagin Non-Reactive (NonReactive)
[2022-07-07 08:23] LABS: Basophils Percent Auto 0.1 % (0.2-1.2); Eosinophils Percent Auto 0.1 % (0-4.4); Immature Granulocyte Absolute 0.07 K/mm3 (0.00-0.031); Immature Granulocyte Percent A 0.6 % (0-0.5); Lymphocytes Absolute Auto 1.25 K/mm3 (0.9-3.2); Lymphocytes Percent Auto 10.6 % (18.3-44.2); Mean Corpuscular HGB Conc 33.1 g/dl (32-36); Mean Corpuscular Hemoglobin 30.3 pg (26-34); Mean Corpuscular Volume 91.4 fl (80-100); Mean Platelet Volume 13.3 fl (7.4-10.4); Monocytes Absolute Auto 0.5 K/mm3 (0.1-0.6); Monocytes Percent Auto 4.2 % (2.6-8.5); Neutrophils Absolute Auto 9.9 K/mm3 (1.3-6.7); Neutrophils Percent Auto 84.4 % (45.5-73.1); Platelet Count Result 103 k/mm3 (150-375); Red Blood Count 1.85 M/mm3 (4.2-5.4); Red Cell Distribution Width 14.6 % (11.5-14.5); White Blood Count 11.8 K/mm3 (4.5-10.0)
[2022-07-07 08:31] LABS: Hematocrit 16.9 % (37.0-47.0); Hemoglobin 5.6 g/dL (12.0-15.0)
[2022-07-07] MEDS: SODIUM CHLORIDE 0.9% IV 250 ML 30 ML IV CONT (10:00)
[2022-07-07] MEDS: IBUPROFEN 600 MG TABLET PO ×3 (10:44→21:12)
[2022-07-07] MEDS: DOCUSATE SODIUM 100 MG CAPSULE PO ×2 (10:44→16:34)
[2022-07-07] MEDS: MULTIVIT/MIN/PREN/FOL AC/IRON TABLET 1 TAB PO (10:44)
[2022-07-07] MEDS: HYDROcodone/acetaminophen (*CRX) 5-325 MG TABLET 1 TAB PO ×3 (10:45→21:12)
--- NOTE | 2022-07-07 10:45 | WPDANLDPN2 ---
Anes-Prog Note L&D Date/Time: 07/07/22 10:45 Comfortable throughout: labor and section Neuraxial method: epidural Epidural/Spinal procedure site: clean & non-tender Neuro status: Neuro function grossly intact. Cardiovascular status: normal Respiratory status: normal Airway patency: baseline Mental status: baseline Post-Op hydration status: normal Vital Signs: Last Vital Signs Temp 36.5 C 07/07/22 10:37 Pulse 101 H 07/07/22 10:37 Resp 16 07/07/22 10:37 BP 96/49 L 07/07/22 10:37 Pulse Ox 99 07/07/22 10:37 O2 Del Method Room Air 07/06/22 23:40 Pain score (VAS): 09/13 I/O: Intake & Output 07/06/22 07/07/22 07/07/22 23:59 07:59 15:59 Intake Total 1350 900 0 Output Total 1160 175 Balance 190 725 0 Post-procedural complaints: none Patient feedback: Patient satisfied with anesthetic care.
[2022-07-07] MEDS: POLYSACCHARIDE IRON COMPLEX 150 MG CAPSULE PO ×2 (10:46→16:34)
--- NOTE | 2022-07-07 10:46 | WPDANLDNPN2 ---
Anes-Prog Note L&D-Neuraxial Date/Time: 07/07/22 10:46 Neuraxial medications: epidural PF morphine Opiod-related complaints: none Patient feedback: Patient satisfied with post-operative pain management.
--- NOTE | 2022-07-07 14:48 | PC.NURSE ---
Please disregard VS on TAR at 1335. They are a duplicate entry of actual VS at 1435.
--- NOTE | 2022-07-07 16:41 | PC.NURSE ---
[id number] Introductions were made, then consulted with patient to assess needs related to . Mother led the conversation with her?plans to feed?her infant and the?experience so far. Resources provided for inpatient and outpatient services using a resource guide and mom/baby guide. Mother voiced understanding of information and requested assistance for flange fitting. Mother is encouraged to record pumping schedule on the feeding sheet and there should not be pain with pumping. Patient was assessed for correct placement, flange size, to pump for comfort and nipple stretching/stimulation for adequate milk production every 3 hours (8 times in 24 hours) 1-2 times at night. Encouraged understanding of the benefits of skin to skin (unwrapping and placing vertically on her chest), responsive feeding and how to watch for early feeding signs, frequency of feeding on demand about every 8-12 times in 24 hours (every 2-3 hours), milk production, duration of feeding, signs of adequate intake/output and how to record on the feeding sheet. Reviewed good handwashing when or touching the breast/nipples to prevent infection. Resources used to facilitate learning were used with the tool and mom and baby guide. Mother voiced understanding of responsive feedings, stimulating with skin to skin, hand expressed colostrum, massage touch, talking to to encourage if it has been 2 -3 hours since the start of the last , to call if infant does not latch or there is discomfort with . Reported to the primary RN.
[2022-07-08] MEDS: HYDROcodone/acetaminophen (*CRX) 5-325 MG TABLET 1 TAB PO ×4 (04:22→23:08)
[2022-07-08] MEDS: IBUPROFEN 600 MG TABLET PO ×4 (04:22→23:08)
[2022-07-08 05:34] LABS: Hematocrit 21.4 % (37.0-47.0); Hemoglobin 7.2 g/dL (12.0-15.0)
[2022-07-08 07:20] VITALS: BP 123/56; PULSE 107; RESP 16; TEMP 36.6; O2SAT 99
--- NOTE | 2022-07-08 08:36 | PM.OBPNVD ---
OB - PN: Subj Subjective Date/time seen: 07/08/22 08:36 Patient comments: no complaints and pain well controlled baby status: doing well [employer] feeding status: exclusively breast feeding OB - PN: Obj Data Labs CBC & Chem 7: 07/08/22 04:17 Labs: Laboratory Results - last 24 hr 07/06/22 07/08/22 09:39 04:17 Hgb 7.2 L Hct 21.4 L Blood Type A Positive Antibody Screen Negative Crossmatch See Detail OB - PN A/P Plan day: 2 Plan: routine care Comments: hemoglobin up as expected after 2units of packed red blood cells Time Spent With Patient Time: Total time spent is greater than 50% in coordination of care (as documented) at patient's floor/unit and/or counseling patient: Time with patient: less than 15 minutes Exam Const: General: cooperative, healthy appearing and comfortable Nutritional Appearance: average body habitus Orientation/consciousness: oriented to person, oriented to place and oriented to time HENMT: Head: normal to inspection Resp: Effort & Inspection: normal respiratory effort GI: Inspection: normal to inspection and incision ( Wound clean dry and)
--- NOTE | 2022-07-08 08:40 | PM.OBPNVD ---
OB - PN: Subj Subjective Date/time seen: 07/08/22 08:40 Patient comments: no complaints and pain well controlled baby status: doing well and nursing well OB - PN: Obj Data Labs CBC & Chem 7: 07/08/22 04:17 Labs: Laboratory Results - last 24 hr 07/06/22 07/08/22 09:39 04:17 Hgb 7.2 L Hct 21.4 L Blood Type A Positive Antibody Screen Negative Crossmatch See Detail OB - PN A/P Plan day: 2 Plan: routine care Comments: hemoglobin and patient is not orthostatic Time Spent With Patient Time: Total time spent is greater than 50% in coordination of care (as documented) at patient's floor/unit and/or counseling patient: Time with patient: less than 15 minutes Exam Const: General: cooperative, healthy appearing and comfortable Nutritional Appearance: average body habitus Orientation/consciousness: oriented to person, oriented to place and oriented to time HENMT: Head: normal to inspection Resp: Effort & Inspection: normal respiratory effort Cardio: Rate: regular rate Rhythm: regular rhythm Heart sounds: S1 normal heart sound present and S2 normal heart sound present GI: Inspection: normal to inspection, incision ( wound clean dry and intact) and Pannus present
[2022-07-08] MEDS: DOCUSATE SODIUM 100 MG CAPSULE PO ×2 (09:31→16:13)
[2022-07-08] MEDS: POLYSACCHARIDE IRON COMPLEX 150 MG CAPSULE PO ×2 (09:31→16:12)
[2022-07-08] MEDS: MULTIVIT/MIN/PREN/FOL AC/IRON TABLET 1 TAB PO (09:31)
--- NOTE | 2022-07-08 11:35 | PC.NURSE ---
[id number] Consulted with patient to assess needs related to . Mother led conversation with her experience with feeding baby so far. Mother works well with her infant with encouragement. Reviewed working with , breast, nipples and how to protect the nipples with an optimal deep latch, good positioning, and good hand washing. Encouraged understanding the benefits of skin to skin, responding to feeding cues, frequencies of feeding 8-12 times in 24 hours (approximately 2-3 hours), duration of feedings, milk production, intake/output feeding sheet and signs of adequate intake encouraging swallowing at the breast. Infant attempt to latch at the breast but tongue sucks with the nipple in the front of his mouth. Reviewed positioning and alignment, supporting breast, supporting the baby, an off-centered (asymmetrical latch) and leading with the chin with big open wide gape. Infant latched optimally to the left breast in cross cradle position. Education given to mother of how to visualize suck/swallow ratios and drinking at the breast. Infant was able to maintain latch without discomfort to mother for 10 minutes and nipple was not misshaped. Nipple care reviewed with optimal latch and good positioning. Mother wanted to know what a good latch feels like. When infant latched correctly mother thought it was painful but described pulling and tugging denying pinching or biting. Encouraged mother to teach infant big, wide open latching instead of tongue sucking with the nipple just inside the lips. Resources used to facilitate learning were used from the tool, mom and baby guide. Mother voiced understanding of the education shared, calling for assistance if the infant does not latch or if there is discomfort with . Reported to the primary RN.
--- NOTE | 2022-07-08 11:40 | PC.NURSE ---
1005 - Reinforced teaching of there should be nipple stretching and no pain with pumping. Reviewed milk production, with , pumping, along with the risks and benefits of bottle feeding with formula. Mother was encouraged to call if she had questions, concerns, or needed assistance waking infant to feed, not able to latch infant, or there's pain with latching.
[2022-07-08 20:00] VITALS: BP 119/63; PULSE 100; RESP 18; TEMP 36.6
--- NOTE | 2022-07-09 05:57 | PM.OBPNVD ---
OB - PN: Subj Subjective Date/time seen: 07/09/22 05:57 Patient comments: no complaints and pain well controlled baby status: doing well and nursing well OB - PN: Obj Data Labs CBC & Chem 7: 07/08/22 04:17 OB - PN A/P Plan day: 3 Plan: routine care, discharge home and follow up 6 weeks (4) Time Spent With Patient Time: Total time spent is greater than 50% in coordination of care (as documented) at patient's floor/unit and/or counseling patient: Time with patient: less than 15 minutes Exam Const: General: cooperative, healthy appearing, comfortable and well groomed Orientation/consciousness: oriented to person, oriented to place and oriented to time HENMT: Head: normal to inspection Resp: Effort & Inspection: normal respiratory effort GI: Inspection: normal to inspection and incision ( Wound clean dry and intact)
[2022-07-09 07:20] VITALS: BP 122/75; PULSE 100; RESP 16; TEMP 36.8; O2SAT 100
[2022-07-09] MEDS: POLYSACCHARIDE IRON COMPLEX 150 MG CAPSULE PO (08:43)
[2022-07-09] MEDS: HYDROcodone/acetaminophen (*CRX) 5-325 MG TABLET 1 TAB PO (08:44)
[2022-07-09] MEDS: IBUPROFEN 600 MG TABLET PO (08:44)
[2022-07-09] MEDS: MULTIVIT/MIN/PREN/FOL AC/IRON TABLET 1 TAB PO (08:44)
[2022-07-09] MEDS: DOCUSATE SODIUM 100 MG CAPSULE PO (08:44)
--- NOTE | 2022-07-09 11:00 | PC.NURSE ---
Patient viewed the discharge video Mother & Baby Care, The First Two Weeks . Patient was given the opportunity and encouraged to ask questions. Patient verbalized understanding of information shared and has been given the mother/baby guide for home reference.
[2022-07-11 10:54] VITALS: BP 150/87; PULSE 114; RESP 20; TEMP 36.9; O2SAT 99
== END 2022-07-09 14:35 | disposition home or self-care (01) | DRG 788 ==
LOC: ANHLDR 19:32 → ANHOB2 22:18
PROVIDERS: Admitting Provider Obstetrics & Gynecology; PCP Nurse Anesthetist, Certified Registered; Visit Provider Obstetrics & Gynecology
PROC: 10D00Z1 Extraction of Products of Conception, Low, Open Approach (ICD-10-PCS; CPT 59514; principal; 2022-07-06 18:30)
DX: O42.92 Full-term premature rupture of membranes, unspecified as to length of time between rupture and onset of labor (principal); O77.0 Labor and delivery complicated by meconium in amniotic fluid; Z37.0 Single live birth; Z3A.40 40 weeks gestation of pregnancy; O62.1 Secondary uterine inertia
CPT/HCPCS: 36415; 36430; 84112; 85014; 85018; 85025; 85055; 86592; 86850; 86900; 86901; 86923; A9270; J0290; J0456; J0690; J1885; J2270; J2274; J2370; J2405; J2590; J2795; J7050; J7120; P9016

== ENCOUNTER 2023-03-28 17:43 | Emergency (ER) | payer OTHER, SELFPAY ==
[2023-03-28 17:54] VITALS: BP 132/80; PULSE 103; RESP 16; TEMP 37.7; O2SAT 97
--- NOTE | 2023-03-28 18:01 | ED.URI ---
HPI - URI/Sore Throat General Chief Complaint: Upper Respiratory Infection Stated Complaint: not feeling well, throat pain Time Seen by Provider: 03/28/23 18:15 Source: patient and RN notes reviewed Mode of arrival: ambulatory Limitations: no limitations History of Present Illness HPI Narrative: 32-year-old female presents concern for sore throat for 4 days. She reports rhinorrhea nasal congestion, decreased energy. Reports symptoms are starting to improve. She reports she is breast-feeding and she has not taken any [id number] medications. MD elicited complaint: sore throat and nasal congestion Related Data Home Medications Medication Instructions Recorded Confirmed labetalol 200 mg tablet mg 03/28/23 norethindrone (contraceptive) 0.35 mg 03/28/23 mg tablet Allergies Allergy/AdvReac Type Severity Reaction Status Date / Time No Known Allergies Allergy Verified 03/28/23 17:53 Review of Systems Review of Systems: CONSTITUTIONAL: Denies malaise, chills, sweats, or fever. Reports decreased energy EYES: Denies visual changes, redness, or discharge. ENT: Reports rhinorrhea, congestion, and sore throat. CARDIOVASCULAR: Denies chest pain, palpitations, or edema. RESPIRATORY: Denies cough. Denies dyspnea. GASTROINTESTINAL: Denies abdominal pain, nausea, vomiting, diarrhea SKIN: Denies rash or itching. MUSCULOSKELETAL: Denies myalgia. NEUROLOGIC: Denies headache. All systems reviewed & are unremarkable except as noted in HPI and below PMFSH Past Medical History Medical History Ectopic (~12/05/19) Surgical History Surgical History History of salpingectomy Family History Family History Mother Diabetes mellitus Father Skin cancer Social History Social History Smoking status: Never smoker Tobacco type: e-cigarettes/vaping Second hand tobacco smoke exposure: No Alcohol intake: current Substance use: never Lack of Transportation: No Lack of Food: Never True Current Housing: I Have Housing Concerned About Future Housing: No Difficulty Paying Gas/Electric Bills: No Difficulty Paying for Meds: No Currently Unemployed: No Education: High School Diploma/GED Difficulty w/ Childcare or Family Care: No Gender identity (if verbalized by the patient): Female Spiritual care concerns: No Agree to blood products: Yes Comments At time of signature, agree with nursing past medical, surgical, social and family history. There is no relevant family history pertinent to the presenting complaint Exam Narrative: GENERAL: Well-appearing, well-nourished, and in no acute distress. HEAD: Normocephalic EYES: PERRLA, conjunctivae clear ENT: Nares clear, turbinates edematous and erythematous, clear discharge. Mucous membranes moist. TM pearly shaikh with sharp light reflex bilaterally; no tragal tenderness. Oropharynx mildly erythematous without lesions. Tonsils not enlarged and without exudate, no drooling, no hoarseness, no trismus, uvula midline. NECK: Supple. No lymphadenopathy CHEST: Clear to auscultation, breath sounds equal. No wheezing, rhonchi, rales, or stridor. No respiratory distress, speaks in full sentences. HEART: Regular rate and rhythm. No murmur heard. SKIN: Warm, dry, no rash. NEURO: Alert and oriented x3. PSYCH: Normal mood and affect Course Course Emergency Course: Patient is aware of diagnosis, understands and agrees to treatment plan. Anticipatory guidance given. Patient agrees to follow-up as directed and is aware of reasons to seek care at the emergency department. Portions of this record may have been created with voice recognition software Level of Care: Express Care Visit Vital Signs Vital signs: Vital Signs
== END 2023-03-28 18:30 | disposition home or self-care (01) ==
PROVIDERS: Emergency Provider Nurse Practitioner; PCP Family Medicine
DX: J06.9 Acute upper respiratory infection, unspecified (principal)
CPT/HCPCS: 87081; 87880; 99213; G0463

== ENCOUNTER 2023-07-13 08:28 | Emergency (ER) | payer OTHER, SELFPAY ==
--- NOTE | 2023-07-13 08:30 | ED.URI ---
HPI - URI/Sore Throat General Chief Complaint: Upper Respiratory Infection Stated Complaint: stuffy nose,sore throat Time Seen by Provider: 07/13/23 08:47 Source: patient, RN notes reviewed and old records reviewed Mode of arrival: ambulatory Limitations: no limitations History of Present Illness HPI Narrative: 32-year-old female presents to the [facility] with complaints of a stuffy nose and sore throat. Patient states a week ago she started with a headache and fatigue. Has been taking honey Robitussin as well as cough medicine and ibuprofen. Reports that over the last week she has had increased stuffy nose and a sore throat. Denies fevers, chest pain. Denies coughing Treatments prior to arrival: cold medicine Related Data Home Medications Medication Instructions Recorded Confirmed labetalol 200 mg tablet 200 mg PO DAILY 03/28/23 07/13/23 norethindrone (contraceptive) 0.35 0.35 mg PO DAILY 03/28/23 07/13/23 mg tablet clotrimazole-betamethasone 1 1 applic topical TID 07/13/23 07/13/23 %-0.05 % topical cream Allergies Allergy/AdvReac Type Severity Reaction Status Date / Time No Known Allergies Allergy Verified 07/13/23 08:38 Review of Systems Review of Systems: All systems reviewed & are unremarkable except as noted in HPI and below Constitutional: Constitutional: Reports no additional constitutional complaints Eyes: Eyes: Reports no additional eye complaints ENT: Reports as per HPI Cardiovascular: Cardiovascular: Reports no additional cardiovascular complaints, Denies chest pain and Denies dyspnea Respiratory: Respiratory: Reports no additional respiratory complaints, Denies chest congestion, Denies cough and Denies dyspnea Gastrointestinal: Gastrointestinal: Reports no additional gastrointestinal complaints, Denies abdominal pain, Denies nausea and Denies vomiting Musculoskeletal: Musculoskeletal: Reports no additional musculoskeletal complaints Integumentary/Breasts: Skin/Breast: Reports system reviewed and no additional complaints, except as docu Neurologic: Reports system reviewed and no additional complaints, except as documented Psychiatric: Psychiatric: Reports no additional psychiatric complaints Allergic/Immunologic: Allergic/Immunologic: Reports no additional allergic/immunologic complaints PMFSH Past Medical History Medical History Ectopic (~12/05/19) Surgical History Surgical History History of salpingectomy Family History Family History Mother Diabetes mellitus Father Skin cancer Social History Social History Smoking status: Never smoker Tobacco type: e-cigarettes/vaping Second hand tobacco smoke exposure: No Alcohol intake: current Substance use: never Lack of Transportation: No Lack of Food: Never True Current Housing: I Have Housing Concerned About Future Housing: No Difficulty Paying Gas/Electric Bills: No Difficulty Paying for Meds: No Currently Unemployed: No Education: High School Diploma/GED Difficulty w/ Childcare or Family Care: No Gender identity (if verbalized by the patient): Female Spiritual care concerns: No Agree to blood products: Yes Comments At the time of my signature, I reviewed and agree with the nursing past medical, surgical, social, and family history. There is no relevant family history pertinent to the patient complaint. Exam Const: General: cooperative, healthy appearing, comfortable, no acute distress, well developed, alert and well nourished Nutritional Appearance: well nourished and obese Orientation/consciousness: patient oriented x3 Limitations: no limitations HENMT: Head: normal to inspection Ears: hearing grossly normal bilaterally, external ears normal, TM's normal
[2023-07-13 08:40] VITALS: BP 148/86; PULSE 105; RESP 16; TEMP 37; O2SAT 99
== END 2023-07-13 09:17 | disposition home or self-care (01) ==
PROVIDERS: Emergency Provider Nurse Practitioner
DX: J06.9 Acute upper respiratory infection, unspecified (principal); Z79.899 Other long term (current) drug therapy
CPT/HCPCS: 87081; 87880; 99213; G0463

== ENCOUNTER 2024-07-29 23:32 | Observation (INO) | payer OTHER, SELFPAY ==
--- NOTE | ~2024-07-29 | US_ITS ---
EXAMINATION: US OB <=14 wk fetus w TV DATE: 07/30/2024 13:25 INDICATION: Evaluate for ectopic . Pain. TECHNIQUE: Real-time transabdominal and transvaginal obstetric ultrasound. FINDINGS: No prior studies for comparison. The uterus measures 9.2 x 3.2 x 7.4 cm. No evidence for intrauterine gestational sac or pole. T here is moderate complex fluid in the pelvic cul-de-sac. Ovaries are not visualized. IMPRESSION: 1: No evidence for intrauterine . Moderate complex fluid in the pelvic cul-de-sac. Consider ations include ectopic , failed and very early intrauterine . Correlate w ith beta hCG levels and follow-up ultrasound as clinically warranted. Reviewed, dictated and finalized at location [facility] IMPRESSION: 1: No evidence for intrauterine . Moderate complex fluid in the pelvi c cul-de-sac. Considerations include ectopic , failed and ve ry early intrauterine . Correlate with beta hCG levels and follow-up u ltrasound as clinically warranted.
[2024-07-29 23:31] VITALS: BP 92/45; PULSE 105; RESP 18; O2SAT 100
--- NOTE | 2024-07-29 23:38 | ECG_ITS ---
Test Date: 2024-07-29 23:47:51 Measurements Intervals Edison Rate: 94 P: 27 NV: 119 QRS: 33 QRSD: 86 T: 28 QT: 344 QTc: 432 Interpretive Statements SINUS RHYTHM WITH SHORT NV INTERVAL BORDERLINE ECG No previous ECG available for comparison Electronically Signed On 07-30-2024 06:12:01 [employer] by Ken Abdalla D.O.
[2024-07-29] MEDS: LACTATED RINGERS 1,000 ML 999 ML IV CONT (23:53)
[2024-07-29] MEDS: ONDANSETRON INJ 4 MG/2 ML VIAL IV PUSH (23:55)
--- NOTE | 2024-07-29 23:58 | PC.NURSE ---
pt BP too low to travel to [place]. US at bedside to do portable imaging
[2024-07-30] VITALS (8 sets, daily range): BP systolic 99–112; BP diastolic 39–76; PULSE 67–95; RESP 16–20; TEMP 36.3–36.8; O2SAT 98–100
[2024-07-30] LABS: Basophils Percent Auto 0.2 % (0.2-1.2); Hematocrit 28.7 % (37.0-47.0); Hemoglobin 9.7 g/dL (12.0-15.0); Immature Granulocyte Absolute 0.16 K/mm3 (0.00-0.031); Immature Granulocyte Percent A 0.7 % (0-0.5); Immature Platelet Fraction Pct 17.3 % (0.9-11.2); Lymphocytes Absolute Auto 1.57 K/mm3 (0.9-3.2); Lymphocytes Percent Auto 6.7 % (18.3-44.2); Mean Corpuscular HGB Conc 33.8 g/dl (32-36); Mean Corpuscular Hemoglobin 30.9 pg (26-34); Mean Corpuscular Volume 91.4 fl (80-100); Mean Platelet Volume 13.6 fl (7.4-10.4); Monocytes Absolute Auto 0.8 K/mm3 (0.1-0.6); Monocytes Percent Auto 3.2 % (2.6-8.5); Neutrophils Percent Auto 89.2 % (45.5-73.1); Platelet Count Result 215 k/mm3 (150-375); Red Blood Count 3.14 M/mm3 (4.2-5.4); Red Cell Distribution Width 12.2 % (11.5-14.5); White Blood Count 23.5 K/mm3 (4.5-10.0)
[2024-07-30 00:17] LABS: Alanine Aminotransferase 38 U/L (6-35); Albumin Level 3.8 g/dL (3.5-5.1); Alkaline Phosphatase 50 U/L (38-126); Anion Gap 8 mmol/L (4-12); Aspartate Amino Transferase 26 U/L (14-36); Bilirubin,Total 0.6 mg/dL (0.2-1.3); Blood Urea Nitrogen 19 mg/dL (7-17); Calcium 8.8 mg/dL (8.4-10.2); Carbon Dioxide 20 mmol/L (22-30); Chloride 103 mmol/L (98-107); Estimated CRCL calculation 75 ml/min; Estimated Glomerular Filt Rate 47; Glucose 206 mg/dL (65-110); Lipase 43 U/L (23-300); Potassium 6.5 mmol/L (3.4-5.0); Sodium 131 mmol/L (137-145)
--- NOTE | 2024-07-30 00:47 | ED_ITS ---
HPI - Abdominal Pain General Chief Complaint: Abdominal Pain Stated Complaint: abd Time Seen by Provider: 07/29/24 23:41 Source: patient Mode of arrival: ambulatory Limitations: no limitations History of Present Illness HPI narrative: This is a 33 year old female that presents to the ER for sudden onset lower abdominal pain and vomiting. Reports she is about 6 weeks by LMP. Her OB is Dr. Ynes Villegas. She has not had ultrasound yet this . She does have history of previous ectopic . Related Data Home Medications Medication Instructions Recorded Confirmed labetalol 200 mg tablet 200 mg PO DAILY 03/28/23 07/13/23 norethindrone (contraceptive) 0.35 0.35 mg PO DAILY 03/28/23 07/13/23 mg tablet clotrimazole-betamethasone 1 1 applic topical TID 07/13/23 07/13/23 %-0.05 % topical cream Allergies Allergy/AdvReac Type Severity Reaction Status Date / Time No Known Allergies Allergy Verified 07/13/23 08:38 Review of Systems Review of Systems: CONSTITUTIONAL: Denies fever GASTROINTESTINAL: Reports abdominal pain, nausea, vomiting All systems reviewed & are unremarkable except as noted in HPI and below PMFSH Past Medical History Medical History (Updated 07/30/24 @ 02:13 by Grant Moran MD) Ectopic (~12/05/19) Surgical History Surgical History History of delivery History of salpingectomy Family History Family History Mother Diabetes mellitus Father Skin cancer Social History Social History Smoking status: Never smoker Tobacco type: e-cigarettes/vaping Second hand tobacco smoke exposure: No Alcohol intake: current Substance use: never Lack of Transportation: No Lack of Food: Never True Current Housing: I Have Housing Concerned About Future Housing: No Difficulty Paying Gas/Electric Bills: No Difficulty Paying for Meds: No Currently Unemployed: No Education: High School Diploma/GED Difficulty w/ Childcare or Family Care: No Gender identity (if verbalized by the patient): Female Spiritual care concerns: No Agree to blood products: Yes Exam Narrative: GENERAL: Ill-appearing, well-nourished, and in no acute distress. HEAD: Normocephalic, atraumatic. EYES: EOMI. CHEST: Clear to auscultation. No respiratory distress. No wheezes rales or rhonchi HEART: Regular rate and rhythm. No murmur heard. Normal peripheral pulses. ABDOMEN: Soft, nondistended, normal active bowel sounds. Tender to palpation throughout the lower abdomen, without guarding EXTREMITIES: Normal range of motion. No edema. SKIN: Warm, dry, no rash. NEURO: No focal deficits. Alert and oriented x3. PSYCH: Normal mood and affect Course Course Emergency Course: Patient updated on workup and need for further management in the OR Consultations Consultation #1: Spoke with Dr. Moran about patient and workup. Patient will be taken to the OR for further management Date: 07/30/24 Vital Signs Vital signs: Vital Signs Pulse Rate 105 H 07/29/24 23:31 Respiratory Rate 18 07/29/24 23:31 Blood Pressure 92/45 L 07/29/24 23:31 Pulse Oximetry 100 07/29/24 23:31 Oxygen Delivery Room Air 07/29/24 23:31 Temperature 97.5 F L 07/30/24 01:15 Pulse Rate 95 07/30/24 01:15 Respiratory Rate 19 07/30/24 01:15 Blood Pressure 107/76 07/30/24 01:15 Pulse Oximetry 100 07/30/24 01:15 Oxygen Delivery Room Air 07/29/24 23:31 MDM - Abdominal Pain MDM Narrative Medical decision making narrative: Patient presents to the ER for sudden onset lower abdominal pain, vomiting. Currently about 6 weeks by LMP. No US yet this . Blood pressure soft upon arrival. Heart rate mildly elevated. This did respond to IV fluids. CBC with leukocytosis to 23.5. Hemoglobin is 9.7. Potassium initially 6.5, repeat 5.2. Metabolic panel also shows some dehydration. Patient given a L of fluids in the ER. Quantitative beta HCG 3836. Ultrasound shows large amount of free fluid. No intrauterine identified. Spoke with Dr. Moran about patient and workup. Patient will be taken to the OR for further management Differential Diagnosis Differential diagnosis: Likely other (ruptured ectopic ) Lab Data Attestation: I reviewed the patient's lab results. 07/29/24 23:52 07/30/24 01:17 Labs: Lab Results 07/29/24 07/30/24 Range/Units 23:52 01:17 WBC 23.5 H (4.5-10.0) K/mm3 RBC 3.14 L (4.2-5.4) M/mm3 Hgb 9.7 L (12.0-15.0) g/dL Hct 28.7 L (37.0-47.0) % MCV 91.4 (80-100) fl MCH 30.9 (26-34) pg MCHC 33.8 (32-36) g/dl RDW 12.2 (11.5-14.5) % Plt Count 215 D (150-375) k/mm3 MPV 13.6 H (7.4-10.4) fl Immature Gran % (Auto) 0.7 H (0-0.5) % Neut % (Auto) 89.2 H (45.5-73.1) % Lymph % (Auto) 6.7 L (18.3-44.2) % Rabun % (Auto) 3.2 (2.6-8.5) % Eos % (Auto) 0.0 (0-4.4) % Baso % (Auto) 0.2 (0.2-1.2) % Lymph # (Auto) 1.57 (0.9-3.2) K/mm3 Rabun # (Auto) 0.8 H (0.1-0.6) K/mm3 Eos # (Auto) 0.0 (0-0.3) K/mm3 Baso # (Auto) 0.0 (0.0-0.1) K/mm3 Abs Immat Gran (auto) 0.16 H (0.00-0.031) K/mm3 Absolute Neuts (auto) 21.0 H (1.3-6.7) K/mm3 Absolute Nucleated RBC 0.000 (0.0-0.012) K/mm3 Nucleated RBC % 0.0 (0.0-0.2) % % Immature Plt Fraction 17.3 H (0.9-11.2) % Sodium 131 L (137-145) mmol/L Potassium 6.5 H* 5.2 H (3.4-5.0) mmol/L Chloride 103 (98-107) mmol/L Carbon Dioxide 20 L (22-30) mmol/L Anion Gap 8 (4-12) mmol/L BUN 19 H D (7-17) mg/dL Creatinine 1.30 H (0.7-1.0) mg/dL Estim Creat Clear Calc 75 ml/min Estimated GFR 47 L (59 - ) Glucose 206 H (65-110) mg/dL Calcium 8.8 (8.4-10.2) mg/dL Total Bilirubin 0.6 (0.2-1.3) mg/dL AST 26 (14-36) U/L ALT 38 H (6-35) U/L Alkaline Phosphatase 50 (38-126) U/L Total Protein 7.0 (6.3-8.2) g/dL Albumin 3.8 (3.5-5.1) g/dL Lipase 43 (23-300) U/L Beta HCG, Quant 3836.70 mIU/ML Blood Type A Positive Antibody Screen Negative Imaging Data Radiologist's impression: Ultrasound OB: No gestational sac seen. Concerning for large amount of possible peritoneal hemorrhage. Ovaries not seen. Consider ectopic nonvisualized with hemorrhage Critical Care Time Critical Care Time Critical Care Time: Yes Total Critical Care Time: 35 Discharge Plan Discharge Clinical Impression: Ectopic Qualifiers: Location of ectopic : unspecified location Intrauterine status: without intrauterine Qualified Code(s): O00.90 - Unspecified ectopic without intrauterine Patient Disposition: Still a Patient Condition: Serious Prescriptions: No Action norethindrone (contraceptive) 0.35 mg tablet 0.35 mg PO DAILY labetalol 200 mg tablet 200 mg PO DAILY clotrimazole-betamethasone 1-0.05 % cream 1 applic TOPICAL TID methylprednisolone [Medrol (Alonso)] 4 mg tablets,dose pack See Rx Instructions PO .COMPLEX Qty: 21 0RF Rx Instructions: orally per package directions Follow-up/Referrals: PHYSICIAN,PHOTONICS ENGINEERING TECHNICIAN [Primary Care Provider] -
--- NOTE | 2024-07-30 01:03 | PC.NURSE ---
dr sandoval paged, and returned call received [phone]
[2024-07-30] MEDS: PROCHLORPERAZINE EDISYLATE 10 MG/2 ML VIAL IV PUSH (01:12)
[2024-07-30] MEDS: SODIUM CHLORIDE 0.9% IV 100 ML 50 ML (01:18)
[2024-07-30 01:35] LABS: Potassium 5.2 mmol/L (3.4-5.0)
--- NOTE | 2024-07-30 02:09 | PM.IMHP ---
H&P: HPI History of Present Illness Date/Time: 07/30/24 02:09 Chief Complaint: Abdominal pain. Narrative: 33 y/o with a prior salpingectomy via laparotomy for ruptured ectopic, here by EMS for abdominal pain and vomiting. hCG noted to be 3000. Ultrasound exam shows large intraperitoneal fluid, no intrauterine . BP in the 80/50 range, now 100/70 after IV hydration. Hgb 9.7. Review of Systems Review of Systems: All systems reviewed & are unremarkable except as noted in HPI and below PMFSH Past Medical History Medical History (Updated 07/30/24 @ 02:13 by Grant Moran MD) Ectopic (~12/05/19) Surgical History Surgical History History of delivery History of salpingectomy Family History Family History Mother Diabetes mellitus Father Skin cancer Social History Social History Smoking status: Never smoker Tobacco type: e-cigarettes/vaping Second hand tobacco smoke exposure: No Alcohol intake: current Substance use: never Lack of Transportation: No Lack of Food: Never True Current Housing: I Have Housing Concerned About Future Housing: No Difficulty Paying Gas/Electric Bills: No Difficulty Paying for Meds: No Currently Unemployed: No Education: High School Diploma/GED Difficulty w/ Childcare or Family Care: No Gender identity (if verbalized by the patient): Female Spiritual care concerns: No Agree to blood products: Yes Meds Home Medications and Allergies Home Medications Medication Instructions Recorded Confirmed Type labetalol 200 mg tablet 200 mg PO DAILY 03/28/23 07/13/23 History norethindrone (contraceptive) 0.35 0.35 mg PO DAILY 03/28/23 07/13/23 History mg tablet clotrimazole-betamethasone 1 1 applic topical TID 07/13/23 07/13/23 History %-0.05 % topical cream methylprednisolone 4 mg tablets in See Rx Instructions PO .COMPLEX 07/13/23 Rx a dose pack (Medrol (Alonso)) #21 ea Allergies Allergy/AdvReac Type Severity Reaction Status Date / Time No Known Allergies Allergy Verified 07/13/23 08:38 Vital Signs Vital Signs - 24 hr 07/29/24 23:31 07/30/24 01:15 Temperature 36.4 C L Pulse Rate 105 H 95 Respiratory Rate 18 19 Blood Pressure 92/45 L 107/76 Pulse Oximetry 100 100 Oxygen Delivery Room Air Exam Const: Orientation/consciousness: patient oriented x3 Other: Well-developed, well-nourished female in no acute distress. Neck: Thyroid: thyroid normal Lymphatic: no lymphadenopathy noted (in neck, axilla or inguinal nodes) Resp: Effort & Inspection: normal respiratory effort Auscultation: clear to auscultation bilaterally Cardio: Rate: regular rate Rhythm: regular rhythm Heart sounds: S1 normal heart sound present and S2 normal heart sound present GI: Other: ABD: Soft, diffusely tender, with rebound tenderness. : General: Yes no CVA tenderness Other: Deferred to OR Back/Spine/Pelvis: Back: no CVA tenderness Skin: General skin exam: normal color and no rashes or lesions noted Neuro: General: patient oriented x3 Extrem: Other: Extremities: nontender with no edema Psych: Mental Status: mental status grossly normal Affect: normal affect H&P: Results Labs Labs: Short CBC 07/29/24 Range/Units 23:52 WBC 23.5 H (4.5-10.0) K/mm3 Hgb 9.7 L (12.0-15.0) g/dL Hct 28.7 L (37.0-47.0) % Plt Count 215 D (150-375) k/mm3 BMP 07/29/24 07/30/24 23:52 01:17 Sodium 131 L Potassium 6.5 H* 5.2 H Chloride 103 Carbon Dioxide 20 L BUN 19 H D Creatinine 1.30 H Glucose 206 H Calcium 8.8 Liver Function 07/29/24 Range/Units 23:52 Total Bilirubin 0.6 (0.2-1.3) mg/dL AST 26 (14-36) U/L ALT 38 H (6-35) U/L Alkaline Phosphatase 50 (38-126) U/L Albumin 3.8 (3.5-5.1) g/dL Assessment and Plan Assessment and plan (1) Hemoperitoneum due to rupture of tubal ectopic : Code(s): O00.109 - Unspecified tubal without intrauterine ; K66.1 - Hemoperitoneum Status: Acute Assessment and Plan: A: Hemoperitoneum, likely related to ruptured ectopic. P: Offered emergent laparoscopy with possible salpingostomy, possible salpingectomy. She understands risks of surgery to include risks of anesthesia, risks of pain, infection, bleeding, blood products, thromboembolic phenomena and damage to adjacent structures such as bowel, bladder, ureters, blood vessels and nerves. She understands I will try to preserve her remaining Fallopian tube, but that that might not be feasible. She understands this could have impact on future fertility. She understands all these risks and elects to proceed with surgery.
--- NOTE | 2024-07-30 02:15 | WPDHPUPDATE1 ---
History and Physical Update Update Date/Time: 07/30/24 02:15 History and Physical has been reviewed, including an updated exam of the patient. There are NO changes in the patient's condition. Risks, benefits, and alternatives have been discussed and questions answered. Patient agrees to proceed with procedure.
--- NOTE | 2024-07-30 02:22 | P.PNAN_ITS ---
Anes - Initial Pre Proc Eval Procedure: Operation Date: 07/30/24 01:55 Proposed Procedures p Diagnostic Laparoscopy Pos Lap - Grant Moran MD Date/Time: 07/30/24 02:22 Pre Op Diagnosis: abd Patient Data Age: 33 Gender: F Height: 1.7 m Weight: 119.7 kg Last Vital Signs Temp 36.4 C L 07/30/24 01:15 Pulse 95 07/30/24 01:15 Resp 19 07/30/24 01:15 BP 107/76 07/30/24 01:15 Pulse Ox 100 07/30/24 01:15 O2 Del Method Room Air 07/29/24 23:31 Allergies Allergy/AdvReac Type Severity Reaction Status Date / Time No Known Allergies Allergy Verified 07/13/23 08:38 Home Medications Medication Instructions Recorded Confirmed Type labetalol 200 mg tablet 200 mg PO DAILY 03/28/23 07/13/23 History norethindrone (contraceptive) 0.35 0.35 mg PO DAILY 03/28/23 07/13/23 History mg tablet clotrimazole-betamethasone 1 1 applic topical TID 07/13/23 07/13/23 History %-0.05 % topical cream methylprednisolone 4 mg tablets in See Rx Instructions PO .COMPLEX 07/13/23 Rx a dose pack (Medrol (Alonso)) #21 ea Laboratory Tests 07/29/24 07/30/24 23:52 01:17 WBC 23.5 H K/mm3 (4.5-10.0) RBC 3.14 L M/mm3 (4.2-5.4) Hgb 9.7 L g/dL (12.0-15.0) Hct 28.7 L % (37.0-47.0) MCV 91.4 fl (80-100) MCH 30.9 pg (26-34) MCHC 33.8 g/dl (32-36) RDW 12.2 % (11.5-14.5) Plt Count 215 D k/mm3 (150-375) MPV 13.6 H fl (7.4-10.4) Immature Gran % (Auto) 0.7 H % (0-0.5) Neut % (Auto) 89.2 H % (45.5-73.1) Lymph % (Auto) 6.7 L % (18.3-44.2) [place] % (Auto) 3.2 % (2.6-8.5) Eos % (Auto) 0.0 % (0-4.4) Baso % (Auto) 0.2 % (0.2-1.2) Lymph # (Auto) 1.57 K/mm3 (0.9-3.2) [place] # (Auto) 0.8 H K/mm3 (0.1-0.6) Eos # (Auto) 0.0 K/mm3 (0-0.3) Baso # (Auto) 0.0 K/mm3 (0.0-0.1) Abs Immat Gran (auto) 0.16 H K/mm3 (0.00-0.031) Absolute Neuts (auto) 21.0 H K/mm3 (1.3-6.7) Absolute Nucleated RBC 0.000 K/mm3 (0.0-0.012) Nucleated RBC % 0.0 % (0.0-0.2) % Immature Plt Fraction 17.3 H % (0.9-11.2) Sodium 131 L mmol/L (137-145) Potassium 6.5 H* mmol/L 5.2 H mmol/L (3.4-5.0) (3.4-5.0) Chloride 103 mmol/L (98-107) Carbon Dioxide 20 L mmol/L (22-30) Anion Gap 8 mmol/L (4-12) BUN 19 H D mg/dL (7-17) Creatinine 1.30 H mg/dL (0.7-1.0) Estim Creat Clear Calc 75 ml/min Estimated GFR 47 L (59 - ) Glucose 206 H mg/dL (65-110) Calcium 8.8 mg/dL (8.4-10.2) Total Bilirubin 0.6 mg/dL (0.2-1.3) AST 26 U/L (14-36) ALT 38 H U/L (6-35) Alkaline Phosphatase 50 U/L (38-126) Total Protein 7.0 g/dL (6.3-8.2) Albumin 3.8 g/dL (3.5-5.1) Lipase 43 U/L (23-300) Beta HCG, Quant 3836.70 mIU/ML Blood Type A Positive Antibody Screen Negative Patient hx anesthesia problems: none Family hx anesthesia problems: none Results Review: All pre-operative results and documents have been reviewed as part of the pre- operative evaluation. [facility] Past Medical History Medical History Ectopic (~12/05/19) Surgical History Surgical History History of delivery History of salpingectomy Family History Family History Mother Diabetes mellitus Father Skin cancer Social History Social History Smoking status: Never smoker Tobacco type: e-cigarettes/vaping Second hand tobacco smoke exposure: No Alcohol intake: current Substance use: never Lack of Transportation: No Lack of Food: Never True Current Housing: I Have Housing Concerned About Future Housing: No Difficulty Paying Gas/Electric Bills: No Difficulty Paying for Meds: No Currently Unemployed: No Education: High School Diploma/GED Difficulty w/ Childcare or Family Care: No Gender identity (if verbalized by the patient): Female Spiritual care concerns: No Agree to blood products: Yes Anes - Eval Final PreProcedure Day of Procedure 07/30/24 02:22 Patient weight: morbidly obese Heart: regular rate and rhythm Lungs: clear to auscultation Airway: Mallampati scale class II Neurological: alert and oriented Last oral intake: >/= 8 hours ASA classification: III Emergent: yes Anesthetic plan: proceed Anesthesia type and monitoring: general ETT and standard monitoring Results Review: All pre-operative results and documents have been reviewed as part of the pre- operative evaluation. Informed Consent: The patient's anesthetic plan and its attendant risks and benefits were discussed with the patient/family/POA. Questions were solicited and answers provided to the satisfaction of the patient/family/POA.
--- NOTE | 2024-07-30 03:52 | P.OP_ITS ---
Procedure Note - Detailed Date of Procedure 07/30/24 Pre-op Diagnosis Ruptured ectopic with hemoperitoneum Post-op Diagnosis Same (Ruptured right tubal with hemoperitoneum) Procedure Performed Diagnostic laparoscopy Evacuation of right tubal ectopic gestation Evacuation of hemoperitoneum Surgeon Grant Moran MD Anesthesia General Findings 1400 mL clotted blood in pelvis. Small right ovarian cyst. Uterus and left ovary unremarkable. Left fallopian tube surgically absent. Proximal right fallopian tube ruptured, with ectopic gestation extruding from it. The distal fallopian tube was normal-appearing. Description of Procedure The patient was taken to the operating room where general endotracheal anesthesia was administered. She was prepared and draped in the usual sterile fashion in the dorsal lithotomy position. The bladder was drained with a red rubber catheter. A sterile speculum was inserted into the vagina and the anterior lip of the cervix was grasped with a single-toothed tenaculum. The acorn uterine manipulator was placed. The speculum was withdrawn. Gloves were changed and attention was turned to the abdomen. An infraumbilical skin incision was made with a scalpel. The abdomen was tented and a 5 millimeter bladeless trocar trocar was advanced under direct laparoscopic visualization. Pneumoperitoneum was administered using carbon dioxide gas. A survey of the pelvis and abdomen yielded the findings noted above. A 5 mm port was placed in the RLQ, and a 10 mm port in the LLQ, both using bladeless trocars under direct laparoscopic visualization. The hemoperitoneum was evacuated. Finally the r uptured right tube was able to be visualized. The ectopic gestation was extruding from the tube. No salpingotomy was required. The ectopic tissue was grasped and removed through the 10 mm port, and passed off to be sent to pathology. Hemostasis was achieved using electrocautery. The pelvis was irrigated copiously with normal saline. Surgicel powder was applied to the proximal tube bed, and hemostasis was excellent. The trocars were withdrawn and the gas was allowed to escape. The skin incisions were reapproximated using 4-0 Vicryl in interrupted subcuticular fashion. Dermaflex was applied externally. The vaginal instrumentation was withdrawn and hemostasis was excellent here as well. Sponge, lap, needle and instrument counts were correct. The patient was awakened and taken to recovery in stable condition. I was present and scrubbed through the entire procedure. Estimated Blood Loss 1,400 Drains No Packing No Pathology Yes (Right tubal ectopic gestation) Complications None Condition Stable Disposition PACU
[2024-07-30] MEDS: LACTATED RINGERS 1,000 ML 30 ML IV CONT ×2 (03:55)
--- NOTE | 2024-07-30 04:03 | PM.DS ---
DS: Admitting Diagnosis Discharge Date 07/30/24 Admitting Diagnosis Ruptured ectopic DS: Discharge Diagnosis Discharge Diagnosis (1) Status post laparoscopy: Code(s): Z98.890 - Other specified postprocedural states Status: Acute (2) Hemoperitoneum due to rupture of tubal ectopic : Code(s): O00.109 - Unspecified tubal without intrauterine ; K66.1 - Hemoperitoneum Status: Acute DS: Summary Hospital Course Hospital Course: She was admitted with suspicion of ectopic gestation. She underwent laparoscopic evacuation of right tubal ectopic gestation, with evacuation of 1400 mL hemoperitoneum. She was observed for several hours postoperatively. Her pain was well-controlled and her hgb was 7.5. She was able to go home on POD#0. Time Spent with Patient Time attestation: Total time spent providing and/or coordinating discharge services: DS: Data Data Completed and Pending Pending studies at discharge: Pending at discharge 07/30/24 03:29 Surgical [PTH] Routine Labs on day of discharge: Labs from last 24 hours 07/30/24 07/29/24 01:17 23:52 WBC 23.5 H RBC 3.14 L Hgb 9.7 L Hct 28.7 L MCV 91.4 MCH 30.9 MCHC 33.8 RDW 12.2 Plt Count 215 D MPV 13.6 H Immature Gran % (Auto) 0.7 H Neut % (Auto) 89.2 H Lymph % (Auto) 6.7 L [place] % (Auto) 3.2 Eos % (Auto) 0.0 Baso % (Auto) 0.2 Lymph # (Auto) 1.57 [place] # (Auto) 0.8 H Eos # (Auto) 0.0 Baso # (Auto) 0.0 Abs Immat Gran (auto) 0.16 H Absolute Neuts (auto) 21.0 H Absolute Nucleated RBC 0.000 Nucleated RBC % 0.0 % Immature Plt Fraction 17.3 H Sodium 131 L Potassium 5.2 H 6.5 H* Chloride 103 Carbon Dioxide 20 L Anion Gap 8 BUN 19 H D Creatinine 1.30 H Estim Creat Clear Calc 75 Estimated GFR 47 L Glucose 206 H Calcium 8.8 Total Bilirubin 0.6 AST 26 ALT 38 H Alkaline Phosphatase 50 Total Protein 7.0 Albumin 3.8 Lipase 43 Beta HCG, Quant 3836.70 Blood Type A Positive Antibody Screen Negative Discharge Plan Discharge Attending physician on discharge: Grant Moran Consulting providers: Jack Giron Discharging Clinician: Grant Moran Patient Disposition: Home, Self-Care Activity: may shower and pelvic rest Diet: regular Wound Care Instructions: incision open to air Discharge Instructions: Call or return if temperature above 100.4? F, increased abdominal pain, increased vaginal bleeding or any new problems. Stand Alone Forms: General Discharge Information Follow-up/Referrals: Grant Moran MD [Physician] - 2 Weeks PHYSICIAN,COUNTY AGRICULTURAL AGENT [Primary Care Provider] - Discharge Medications: New ferrous sulfate 325 mg (65 mg iron) tablet 325 mg PO DAILY Qty: 30 0RF oxycodone-acetaminophen [Percocet] 5-325 mg tablet 1 - 2 tablet PO Q6H PRN (Reason: pain) Qty: 30 0RF Continued labetalol 200 mg tablet 200 mg PO DAILY clotrimazole-betamethasone 1-0.05 % cream 1 applic TOPICAL TID Discontinued norethindrone (contraceptive) 0.35 mg tablet 0.35 mg PO DAILY methylprednisolone [Medrol (Alonso)] 4 mg tablets,dose pack See Rx Instructions PO .COMPLEX Qty: 21 0RF Rx Instructions: orally per package directions Date of admission: 07/30/24 04:52 Primary Care Provider: PHYSICIAN,COUNTY [employer]ICULTURAL AGENT Admitting Provider: Grant Moran Attending physician on admission: Grant Moran Condition: Stable
[2024-07-30] MEDS: fentaNYL CITRATE INJ (*CRX) 100 MCG/2 ML VIAL 25 MCG IV PUSH ×5 (04:17→04:37)
--- NOTE | 2024-07-30 05:13 | ADMGEN ---
This patient, Mel Gold, was admitted to [facility] Room 306-01. Patient/family oriented to hospital policies and general routines including ID bracelet, bed and alarms, visiting hours, pain management, procedures, bathroom and other care routines, personal items, smoking policy, room service/diet, and visiting hours. Information on how to activate the Rapid Response Team has been discussed. Patient/Family are encouraged to report perceived risks to care and to ask questions if they do not understand what they are told or what they should do.
[2024-07-30] MEDS: DEXTROSE 5%/0.45% SOD CHL 1,000 ML 125 ML IV CONT (05:33)
[2024-07-30] MEDS: IBUPROFEN 600 MG TABLET PO ×2 (05:33→12:47)
[2024-07-30 06:18] LABS: Hematocrit 22.6 % (37.0-47.0); Hemoglobin 7.5 g/dL (12.0-15.0)
[2024-07-30] MEDS: HYDROcodone/acetaminophen (*CRX) 5-325 MG TABLET 1 TAB PO ×2 (08:41→12:47)
[2024-07-30 12:24] LABS: Glucose Point of Care 169 mg/dl (65-105)
--- NOTE | 2024-07-30 12:39 | P.PNOB_ITS ---
CARD PROCESSING CLERK - A/P Assessment and plan (1) Status post laparoscopy: Code(s): Z98.890 - Other specified postprocedural states Status: Acute Assessment and Plan: A: POD#0 after laparoscopic evacuation of right tubal , evacuation of hemoperitoneum. Doing well now. P: Reviewed the intraoperative course. Reviewed instructions and precautions. F/u office 1-2 weeks. Postoperative Procedures: Procedures Operation Date: 07/30/24 01:55 Actual Procedure Side Surgeon p Diagnostic Laparoscopy, Evacuataion of Right Proximal Ruptured Ectopic Right Grant Moran MD Postoperative day: 0 Time Spent With Patient Time with patient: 15 - 25 minutes CARD PROCESSING CLERK- PN:Subj Post-Op Subjective Date/time seen: 07/30/24 12:39 Pain well-controlled. Eating regular diet. Exam Narrative: AVSS I/O OK ABD soft, nontender. Incisions clean, dry and intact. EXT nontender CARD PROCESSING CLERK - PN: Obj Data Vital Signs Vital Signs: Vital Signs - 24 hr 07/29/24 23:31 07/30/24 01:15 07/30/24 03:55 Temperature 36.4 C L 36.7 C Pulse Rate 105 H 95 79 Respiratory Rate 18 19 20 Blood Pressure 92/45 L 107/76 99/39 L Pulse Oximetry 100 100 100 Oxygen Delivery Room Air Simple Face Mask Oxygen Flow Rate 6 07/30/24 04:10 07/30/24 04:25 07/30/24 04:40 Temperature Pulse Rate 75 67 70 Respiratory Rate 18 16 16 Blood Pressure 104/51 L 102/47 L 103/56 L Pulse Oximetry 100 98 99 Oxygen Delivery Room Air Room Air Room Air Oxygen Flow Rate 07/30/24 04:50 07/30/24 06:00 07/30/24 06:29 Temperature 36.8 C 36.3 C L Pulse Rate 70 69 79 Respiratory Rate 16 16 16 Blood Pressure 106/62 110/50 L 112/60 Pulse Oximetry 100 100 100 Oxygen Delivery Room Air Oxygen Flow Rate 07/30/24 08:41 Temperature Pulse Rate Respiratory Rate Blood Pressure Pulse Oximetry Oxygen Delivery Room Air Oxygen Flow Rate Intake/Output Intake/Output: Intake & Output 07/27/24 07/28/24 07/29/24 07/30/24 23:59 23:59 23:59 23:59 Intake Total 1300 Output Total 100 Balance 1200 Meds/Results Medications: Active Medications Generic Name Dose Route Start Last Admin Trade Name Freq PRN Reason Stop Dose Admin Hydrocodone Bitart/Acetaminophen 1 tab 07/30/24 04:52 Hydrocodone/Acetaminophen (*Crx) 10-325 Mg Tablet PO Q3H PRN Breakthrough Pain Rated 7-10 Hydrocodone Bitart/Acetaminophen 1 tab 07/30/24 04:52 07/30/24 08:41 Hydrocodone/Acetaminophen (*Crx) 5-325 Mg Tablet PO 1 tab Q3H PRN Administration Breakthrough Pain Rated 4-6 Dextrose/Sodium Chloride 1,000 mls @ 125 mls/hr 07/30/24 04:52 07/30/24 05:33 Dextrose 5% Sodium Chloride 0.45% IV CONT 125 mls/hr .Q8H LACY Administration Ibuprofen 600 mg 07/30/24 05:30 07/30/24 05:33 Ibuprofen 600 Mg Tablet PO 600 mg Q6HR LACY Administration Morphine Sulfate 2 mg 07/30/24 04:52 Morphine Sulfate (*Crx) 2 Mg/Ml Inj IV PUSH Q4H PRN Breakthrough Pain Rated 7-10 Naloxone HCl 0.1 mg 07/30/24 04:52 Naloxone Hcl 0.4 Mg/Ml Vial IV PUSH Q2M PRN Opiate Reversal Ondansetron HCl 4 mg 07/30/24 04:52 Ondansetron Inj 4 Mg/2 Ml Vial IV PUSH Q6H PRN Nausea Labs 07/30/24 06:08 07/30/24 01:17 Labs: Laboratory Results - last 24 hr 07/29/24 07/30/24 07/30/24 23:52 01:17 06:08 WBC 23.5 H RBC 3.14 L Hgb 9.7 L 7.5 L Hct 28.7 L 22.6 L MCV 91.4 MCH 30.9 MCHC 33.8 RDW 12.2 Plt Count 215 D MPV 13.6 H Immature Gran % (Auto) 0.7 H Neut % (Auto) 89.2 H Lymph % (Auto) 6.7 L [place] % (Auto) 3.2 Eos % (Auto) 0.0 Baso % (Auto) 0.2 Lymph # (Auto) 1.57 [place] # (Auto) 0.8 H Eos # (Auto) 0.0 Baso # (Auto) 0.0 Abs Immat Gran (auto) 0.16 H Absolute Neuts (auto) 21.0 H Absolute Nucleated RBC 0.000 Nucleated RBC % 0.0 % Immature Plt Fraction 17.3 H Sodium 131 L Potassium 6.5 H* 5.2 H Chloride 103 Carbon Dioxide 20 L Anion Gap 8 BUN 19 H D Creatinine 1.30 H Estim Creat Clear Calc 75 Estimated GFR 47 L Glucose 206 H POC Capillary Glucose Calcium 8.8 Total Bilirubin 0.6 AST 26 ALT 38 H Alkaline Phosphatase 50 Total Protein 7.0 Albumin 3.8 Lipase 43 Beta HCG, Quant 3836.70 Blood Type A Positive Antibody Screen Negative 07/30/24 12:18 WBC RBC Hgb Hct MCV MCH MCHC RDW Plt Count MPV Immature Gran % (Auto) Neut % (Auto) Lymph % (Auto) [place] % (Auto) Eos % (Auto) Baso % (Auto) Lymph # (Auto) [place] # (Auto) Eos # (Auto) Baso # (Auto) Abs Immat Gran (auto) Absolute Neuts (auto) Absolute Nucleated RBC Nucleated RBC % % Immature Plt Fraction Sodium Potassium Chloride Carbon Dioxide Anion Gap BUN Creatinine Estim Creat Clear Calc Estimated GFR Glucose POC Capillary Glucose 169 H Calcium Total Bilirubin AST ALT Alkaline Phosphatase Total Protein Albumin Lipase Beta HCG, Quant Blood Type Antibody Screen
== END 2024-07-30 13:31 | disposition home or self-care (01) ==
LOC: ANHED 07-30 02:10 → ANH3MEDSUR 07-30 05:03 → ANHOUTPT 07-30 06:58 → ANH3MEDSUR 07-30 06:59
PROVIDERS: Emergency Medicine; Admitting Provider Obstetrics & Gynecology; Emergency Provider Physician Assistant; Visit Provider Obstetrics & Gynecology
PROC: (CPT 49320; principal; 2024-07-30 01:55)
DX: O00.101 Right tubal pregnancy without intrauterine pregnancy (principal); K66.1 Hemoperitoneum; O34.80 Maternal care for other abnormalities of pelvic organs, unspecified trimester; N83.201 Unspecified ovarian cyst, right side; Z90.79 Acquired absence of other genital organ(s); O99.330 Smoking (tobacco) complicating pregnancy, unspecified trimester; F17.290 Nicotine dependence, other tobacco product, uncomplicated; Z3A.00 Weeks of gestation of pregnancy not specified; Z83.3 Family history of diabetes mellitus; Z79.52 Long term (current) use of systemic steroids; Z79.899 Other long term (current) drug therapy
CPT/HCPCS: 59150; 36415; 76801; 76817; 80053; 82948; 83690; 84132; 84702; 85014; 85018; 85025; 85055; 86850; 86900; 86901; 88305; 93005; 96374; 99285; A9270; G0378; J0780; J2405; J3010; J7030; J7120

== ENCOUNTER 2024-08-01 00:43 | Observation (INO) | payer OTHER, SELFPAY ==
[2024-08-01] VITALS (66 sets, daily range): BP systolic 100–137; BP diastolic 53–77; PULSE 80–117; RESP 9–18; TEMP 36.8–38.3; O2SAT 90–100
--- NOTE | ~2024-08-01 | US_ITS ---
EXAMINATION: US pelvic complete w TV DATE: 08/01/2024 12:11 INDICATION: Assess for postsurgical intra-abdominal bleeding TECHNIQUE: Multiple transabdominal and endovaginal sonographic images of the pelvis were obtained. COMPARISON: None. FINDINGS: The uterus measures 9.3 x 4.1 x 5.6 cm. The endometrial complex measures 7 mm in thickness. Unchange d linear shadowing likely section scar along the anterior lower uterine segment. The right o vary measures 3.3 x 3.4 x 2.2 cm. The left ovary measures 2.5 x 2.1 x 1.7 cm. There is a 2.0 cm thick -walled centrally anechoic likely corpus luteum cyst in the right ovary with a few additional smaller follicles at both ovaries. Vascular flow identified at both ovaries on color Doppler. There are 10.7 x 4.0 cm hypoechoic complex fluid collection about the right ovary and 6.0 x 6.4 x 4.0 complex fluid collection at the cul-de-sac with increased echogenicity suggesting small amount of hemoperitoneum r elated to reported recent surgery. Additional 13.1 x 5.0 cm collection of free fluid in the right low er quadrant. IMPRESSION: 1. Complex hypoechoic fluid collections in the cul-de-sac, but the right adnexa and in the right lowe r quadrant suspicious for small to moderate amount of postoperative pneumoperitoneum. 2. section scar at the anterior lower uterine segment, a few small bilateral ovarian cysts a nd a larger 2.0 cm likely corpus luteum cyst at the right ovary. Reviewed, dictated and finalized at location A. ON PICKING MACHINE OPERATOR IMPRESSION: 1. Complex hypoechoic fluid collections in the cul-de-sac, but the right adnexa and in the right lower quadrant suspicious for small to moderate amount of pos toperative pneumoperitoneum. 2. section scar at the anterior lower uterine segment, a few small colt ateral ovarian cysts and a larger 2.0 cm likely corpus luteum cyst at the right ovary.
[2024-08-01 01:14] LABS: Basophils Percent Auto 0.2 % (0.2-1.2); Eosinophils Absolute Auto 0.1 K/mm3 (0-0.3); Eosinophils Percent Auto 0.8 % (0-4.4); Immature Granulocyte Absolute 0.06 K/mm3 (0.00-0.031); Immature Granulocyte Percent A 0.9 % (0-0.5); Immature Platelet Fraction Pct 13.2 % (0.9-11.2); Lymphocytes Absolute Auto 1.81 K/mm3 (0.9-3.2); Lymphocytes Percent Auto 28.1 % (18.3-44.2); Mean Corpuscular HGB Conc 33.3 g/dl (32-36); Mean Corpuscular Hemoglobin 31.1 pg (26-34); Mean Corpuscular Volume 93.3 fl (80-100); Mean Platelet Volume 12.7 fl (7.4-10.4); Monocytes Absolute Auto 0.4 K/mm3 (0.1-0.6); Monocytes Percent Auto 5.7 % (2.6-8.5); Neutrophils Absolute Auto 4.1 K/mm3 (1.3-6.7); Neutrophils Percent Auto 64.3 % (45.5-73.1); Nucleated Red Blood Cells Perc 0.3 % (0.0-0.2); Red Blood Count 1.64 M/mm3 (4.2-5.4); Red Cell Distribution Width 12.7 % (11.5-14.5); White Blood Count 6.4 K/mm3 (4.5-10.0)
[2024-08-01 01:22] LABS: Hemoglobin 5.1 g/dL (12.0-15.0)
[2024-08-01 01:23] LABS: Hematocrit 15.3 % (37.0-47.0)
[2024-08-01 01:24] LABS: Alanine Aminotransferase 26 U/L (6-35); Albumin Level 3.5 g/dL (3.5-5.1); Alkaline Phosphatase 52 U/L (38-126); Anion Gap 3 mmol/L (4-12); Aspartate Amino Transferase 24 U/L (14-36); Bilirubin,Total 0.3 mg/dL (0.2-1.3); Blood Urea Nitrogen 10 mg/dL (7-17); Calcium 8.3 mg/dL (8.4-10.2); Carbon Dioxide 27 mmol/L (22-30); Chloride 105 mmol/L (98-107); Estimated CRCL calculation 145 ml/min; Estimated Glomerular Filt Rate > 60; Glucose 107 mg/dL (65-110); INR 0.9; Potassium 3.5 mmol/L (3.4-5.0); Prothrombin Time 12.8 Seconds (11.1-14.7); Sodium 135 mmol/L (137-145)
[2024-08-01 01:25] LABS: Partial Thromboplastin Time 25.1 Seconds (22.3-36.8)
--- NOTE | 2024-08-01 01:26 | ED_ITS ---
HPI - General Adult General Chief complaint: Unspecified Stated complaint: hypotensive, tachycardia, dizzy, Time Seen by Provider: 08/01/24 01:02 Source: patient Mode of arrival: wheelchair Limitations: no limitations History of Present Illness HPI narrative: This is a 33-year-old female that presents to the emergency department for dizziness and lightheadedness. Reports this started earlier tonight. She noted that her heart rate was elevated as well. She is feeling very lightheaded upon standing. She was recently hospitalized for an urgent laparotomy after suffering a ruptured ectopic . She called her business education professor who prompted her to be seen in the ER. Reports her abdominal pain continues to improve after the surgery. She is not having any vaginal bleeding. Related Data Home Medications Medication Instructions Recorded Confirmed labetalol 200 mg tablet 200 mg PO DAILY 03/28/23 07/13/23 clotrimazole-betamethasone 1 1 applic topical TID 07/13/23 07/13/23 %-0.05 % topical cream Allergies Allergy/AdvReac Type Severity Reaction Status Date / Time No Known Allergies Allergy Verified 07/13/23 08:38 Review of Systems Review of Systems: CONSTITUTIONAL: Denies fever GASTROINTESTINAL: Denies abdominal pain, nausea, vomiting All systems reviewed & are unremarkable except as noted in HPI and below PMFSH Past Medical History Medical History Ectopic (~12/05/19) Surgical History Surgical History History of delivery History of salpingectomy Family History Family History Mother Diabetes mellitus Father Skin cancer Social History Social History Smoking status: Never smoker Second hand tobacco smoke exposure: No Alcohol intake: current Substance use: never Do You Feel Safe in your Home?: Yes Lack of Transportation: No Lack of Food: Never True Current Housing: I Have Housing Concerned About Future Housing: No Difficulty Paying Gas/Electric Bills: No Difficulty Paying for Meds: No Currently Unemployed: No Education: Decline to Answer Difficulty w/ Childcare or Family Care: No Gender identity (if verbalized by the patient): Female Spiritual care concerns: No Agree to blood products: Yes Exam Narrative: GENERAL: Pale, well-nourished, and in no acute distress. HEAD: Normocephalic, atraumatic. EYES: EOMI. ENT: Nares clear, no rhinorrhea or epistaxis. Mucous membranes moist. CHEST: Clear to auscultation. No respiratory distress. No wheezes rales or rhonchi HEART: Tachycardic, regular rhythm. No murmur heard. Normal peripheral pulses. ABDOMEN: Soft, nontender, nondistended, normal active bowel sounds. Bruising to the left lateral abdomen, bandages are clean/dry/intact EXTREMITIES: Normal range of motion. No edema. SKIN: Warm, dry, no rash. NEURO: No focal deficits. Alert and oriented x3. PSYCH: Normal mood and affect Course Course Emergency Course: patient updated on her workup and need for admission Consultations Consultation #1: Spoke with Dr. Ynes Villegas about patient and workup who agrees with admission Date: 08/01/24 Vital Signs Vital signs: Vital Signs Temperature 98.2 F 08/01/24 00:45 Pulse Rate 115 H 08/01/24 00:45 Respiratory Rate 18 08/01/24 00:45 Blood Pressure 115/55 L 08/01/24 00:45 Pulse Oximetry 100 08/01/24 00:45 Oxygen Delivery Room Air 08/01/24 00:45 Temperature 98.2 F 08/01/24 00:45 Pulse Rate 104 H 08/01/24 01:44 Respiratory Rate 9 L 08/01/24 01:42 Blood Pressure 100/53 L 08/01/24 01:42 Pulse Oximetry 100 08/01/24 01:42 Oxygen Delivery Room Air 08/01/24 00:45 Medical Decision Making [facility] Narrative Medical decision making narrative: patient presents the emergency department for lightheadedness and tachycardia. Recent laparotomy after ruptured ectopic . tachycardic to 115 upon arrival. blood pressure mildly soft. CBC shows hemoglobin of 5.1 hematocrit of 15.3. Metabolic panel without concerning findings. Patient reports improvement in her abdominal pain since surgery. Her abdomen is soft. 2 units packed RBCs ordered. Spoke with Dr. Ynes Villegas about patient and workup who agrees with admission. patient updated on her workup and need for admission Vital Signs Vital Signs: Vital Signs Temperature 98.2 F 11/28/24 00:45 Pulse Rate 115 H 08/01/24 00:45 Respiratory Rate 18 08/01/24 00:45 Blood Pressure 115/55 L 08/01/24 00:45 Pulse Oximetry 100 08/01/24 00:45 Oxygen Delivery Room Air 08/01/24 00:45 Temperature 98.2 F 08/01/24 00:45 Pulse Rate 104 H 08/01/24 01:44 Respiratory Rate 9 L 08/01/24 01:42 Blood Pressure 100/53 L 08/01/24 01:42 Pulse Oximetry 100 08/01/24 01:42 Oxygen Delivery Room Air 08/01/24 00:45 Lab Data Lab results reviewed: Yes I reviewed the patient's lab results. 08/01/24 01:07 08/01/24 01:07 Labs: Lab Results 08/01/24 08/01/24 Range/Units 01:07 01:22 WBC 6.4 (4.5-10.0) K/mm3 RBC 1.64 L (4.2-5.4) M/mm3 Hgb 5.1 L* (12.0-15.0) g/dL Hct 15.3 L* (37.0-47.0) % MCV 93.3 (80-100) fl MCH 31.1 (26-34) pg MCHC 33.3 (32-36) g/dl RDW 12.7 (11.5-14.5) % Plt Count 91 L D (150-375) k/mm3 MPV 12.7 H (7.4-10.4) fl Immature Gran % (Auto) 0.9 H (0-0.5) % Neut % (Auto) 64.3 (45.5-73.1) % Lymph % (Auto) 28.1 (18.3-44.2) % [place] % (Auto) 5.7 (2.6-8.5) % Eos % (Auto) 0.8 (0-4.4) % Baso % (Auto) 0.2 (0.2-1.2) % Lymph # (Auto) 1.81 (0.9-3.2) K/mm3 [place] # (Auto) 0.4 (0.1-0.6) K/mm3 Eos # (Auto) 0.1 (0-0.3) K/mm3 Baso # (Auto) 0.0 (0.0-0.1) K/mm3 Abs Immat Gran (auto) 0.06 H (0.00-0.031) K/mm3 Absolute Neuts (auto) 4.1 (1.3-6.7) K/mm3 Absolute Nucleated RBC 0.020 H (0.0-0.012) K/mm3 Nucleated RBC % 0.3 H (0.0-0.2) % Platelet Estimate Adequate (Adequate) % Immature Plt Fraction 13.2 H (0.9-11.2) % Hypochromasia 2+ Anisocytosis 1+ Schistocytes None seen PT 12.8 (11.1-14.7) Seconds INR 0.9 APTT 25.1 (22.3-36.8) Seconds Sodium 135 L (137-145) mmol/L Potassium 3.5 (3.4-5.0) mmol/L Chloride 105 (98-107) mmol/L Carbon Dioxide 27 (22-30) mmol/L Anion Gap 3 L (4-12) mmol/L BUN 10 D (7-17) mg/dL Creatinine 0.60 L (0.7-1.0) mg/dL Estim Creat Clear Calc 145 ml/min Estimated GFR > 60 (59 - ) Glucose 107 (65-110) mg/dL Calcium 8.3 L (8.4-10.2) mg/dL Total Bilirubin 0.3 (0.2-1.3) mg/dL AST 24 (14-36) U/L ALT 26 (6-35) U/L Alkaline Phosphatase 52 (38-126) U/L Total Protein 6.0 L (6.3-8.2) g/dL Albumin 3.5 (3.5-5.1) g/dL Blood Type Pending Antibody Screen Pending Crossmatch See Detail Critical Care Time Critical Care Time Critical Care Time: Yes Total Critical Care Time: 35 Discharge Plan Discharge Clinical Impression: Anemia Qualifiers: Anemia type: unspecified type Qualified Code(s): D64.9 - Anemia, unspecified Patient Disposition: Still a Patient Condition: Serious Prescriptions: No Action labetalol 200 mg tablet 200 mg PO DAILY clotrimazole-betamethasone 1-0.05 % cream 1 applic TOPICAL TID ferrous sulfate 325 mg (65 mg iron) tablet 325 mg PO DAILY Qty: 30 0RF oxycodone-acetaminophen [Percocet] 5-325 mg tablet 1 - 2 tablet PO Q6H PRN (Reason: pain) Qty: 30 0RF Follow-up/Referrals: PHYSICIAN,DIAMOND SELECTOR [Primary Care Provider] -
[2024-08-01 01:36] LABS: Platelet Count Result 91 k/mm3 (150-375)
[2024-08-01] MEDS: ONDANSETRON INJ 4 MG/2 ML VIAL IV PUSH (01:36)
[2024-08-01] MEDS: SODIUM CHLORIDE 0.9% IV 250 ML 30 ML IV CONT ×2 (01:36→17:31)
[2024-08-01] MEDS: TUBING, BLOOD SET 1 EACH XX (01:36)
[2024-08-01 01:37] LABS: Anisocytosis 1+; Hypochromasia 2+; Platelet Estimate Adequate (Adequate); Schistocytes None Seen
--- NOTE | 2024-08-01 03:02 | PC.NURSE ---
Pt arrives to unit from the Emergency Department with dizziness, weak, hypotensive, and increased heart rate.
--- NOTE | 2024-08-01 06:29 | PM.IMHP ---
H&P: HPI History of Present Illness Date/Time: 08/01/24 06:29 Chief Complaint: Shortness of breath and fatigue Narrative: 33-year-old female who underwent laparoscopic resection of ectopic on the left a few days ago. She had hemoglobin of 6 when she left and was stable but she is now complaining of fatigue and tachycardia. She had a hemoglobin of 5 1 on admission so she is admitted for the blood transfusion. She had a previous ectopic on the other side and had a in between. Review of Systems Review of Systems: CONSTITUTIONAL: Denies fever GASTROINTESTINAL: Denies abdominal pain, nausea, vomiting All systems reviewed & are unremarkable except as noted in HPI and below PMFSH Past Medical History Medical History Ectopic (~12/05/19) Surgical History Surgical History History of delivery History of salpingectomy Family History Family History Mother Diabetes mellitus Father Skin cancer Social History Social History Smoking status: Never smoker Second hand tobacco smoke exposure: No Alcohol intake: current Substance use: never Do You Feel Safe in your Home?: Yes Lack of Transportation: No Lack of Food: Never True Current Housing: I Have Housing Concerned About Future Housing: No Difficulty Paying Gas/Electric Bills: No Difficulty Paying for Meds: No Currently Unemployed: No Education: Decline to Answer Difficulty w/ Childcare or Family Care: No Gender identity (if verbalized by the patient): Female Spiritual care concerns: No Agree to blood products: Yes Meds Home Medications and Allergies Home Medications Medication Instructions Recorded Confirmed Type labetalol 200 mg tablet 200 mg PO DAILY 03/28/23 07/13/23 History clotrimazole-betamethasone 1 1 applic topical TID 07/13/23 07/13/23 History %-0.05 % topical cream ferrous sulfate 325 mg (65 mg 325 mg PO DAILY #30 tabs 07/30/24 Rx iron) tablet oxycodone-acetaminophen 5 mg-325 1 - 2 tablet PO Q6H PRN pain #30 07/30/24 Rx mg tablet (Percocet) tabs Allergies Allergy/AdvReac Type Severity Reaction Status Date / Time No Known Allergies Allergy Verified 07/13/23 08:38 Vital Signs Vital Signs - 24 hr 08/01/24 00:45 08/01/24 01:44 08/01/24 01:13 Temperature 98.2 F Pulse Rate 115 H 104 H 110 H Respiratory Rate 18 13 Blood Pressure 115/55 L 117/55 L Pulse Oximetry 100 100 Oxygen Delivery Room Air 08/01/24 01:16 08/01/24 01:42 08/01/24 01:46 Temperature Pulse Rate 112 H 105 H 103 H Respiratory Rate 10 L 9 L 12 Blood Pressure 107/54 L 100/53 L 110/54 L Pulse Oximetry 99 100 99 Oxygen Delivery 08/01/24 02:01 08/01/24 02:39 08/01/24 02:56 Temperature 99.0 F 98.7 F Pulse Rate 110 H 109 H 106 H Respiratory Rate 12 13 12 Blood Pressure 105/54 L 125/64 122/68 Pulse Oximetry 100 100 100 Oxygen Delivery 08/01/24 03:57 08/01/24 05:01 08/01/24 05:14 Temperature Pulse Rate 104 H 100 Respiratory Rate Blood Pressure 114/58 L 117/61 Pulse Oximetry 98 94 95 Oxygen Delivery 08/01/24 05:19 08/01/24 05:23 08/01/24 05:24 Temperature Pulse Rate 105 H Respiratory Rate Blood Pressure 120/57 L Pulse Oximetry 94 98 Oxygen Delivery 08/01/24 05:29 08/01/24 05:34 08/01/24 05:39 Temperature Pulse Rate Respiratory Rate Blood Pressure Pulse Oximetry 90 97 97 Oxygen Delivery 08/01/24 05:40 08/01/24 03:56 08/01/24 04:56 Temperature 99.5 F 99.2 F Pulse Rate 99 103 H 106 H Respiratory Rate 14 14 Blood Pressure 115/62 114/58 L 117/61 Pulse Oximetry 98 94 Oxygen Delivery 08/01/24 05:22 08/01/24 03:07 08/01/24 05:40 Temperature 99.4 F 99.5 F Pulse Rate 96 100 Respiratory Rate 12 14 Blood Pressure 120/57 L 115/62 Pulse Oximetry 94 97 Oxygen Delivery Room Air Exam Const: General: cooperative, healthy appearing, comfortable and well groomed Nutritional Appearance: overweight Orientation/consciousness: oriented to person, oriented to place and oriented to time Resp: Effort & Inspection: normal respiratory effort Cardio: Rate: regular rate Rhythm: regular rhythm Heart sounds: S1 normal heart sound present and S2 normal heart sound present GI: Inspection: normal to inspection, abdominal wall ecchymosis, incision ( Hematoma noted on the left lower incision) and obesity GI Palp: Yes Soft to palpation Auscultation: normal bowel sounds : External Female Exam: normal external appearance Speculum Exam - Vagina: normal appearance of the vagina Speculum Exam - Cervix: normal appearance of the cervix ( no vaginal bleeding) H&P: Results Labs Labs: Short CBC 08/01/24 Range/Units 01:07 WBC 6.4 (4.5-10.0) K/mm3 Hgb 5.1 L* (12.0-15.0) g/dL Hct 15.3 L* (37.0-47.0) % Plt Count 91 L D (150-375) k/mm3 BMP 08/01/24 01:07 Sodium 135 L Potassium 3.5 Chloride 105 Carbon Dioxide 27 BUN 10 D Creatinine 0.60 L Glucose 107 Calcium 8.3 L Liver Function 08/01/24 Range/Units 01:07 Total Bilirubin 0.3 (0.2-1.3) mg/dL AST 24 (14-36) U/L ALT 26 (6-35) U/L Alkaline Phosphatase 52 (38-126) U/L Albumin 3.5 (3.5-5.1) g/dL Assessment and Plan Assessment and plan (1) Anemia: Qualifiers: Anemia type: unspecified type Qualified Code(s): D64.9 - Anemia, unspecified Code(s): D64.9 - Anemia, unspecified Status: Acute Assessment and Plan: patient is admitted for 2units of blood. Recheck CBC and consider discharge today. We did discuss the fact that she should not attempt in the future as both tubes have been injured.
--- NOTE | 2024-08-01 06:32 | P.PNOB_ITS ---
ELECTROCARDIOGRAPH OPERATOR - A/P Postoperative Postoperative status: doing well Postoperative plan: see orders and other ( Recheck CBC this morning) Time Spent With Patient Time: Total time spent is greater than 50% in coordination of care (as documented) at patient's floor/unit and/or counseling patient: Time with patient: less than 15 minutes ELECTROCARDIOGRAPH OPERATOR- PN:Marychuy Post-Op Subjective Date/time seen: 08/01/24 06:32 Subjective: patient reports feeling better, patient has no complaints, patient desires discharge, pain is well controlled and patient is tolerating oral intake Review of Systems Review of Systems: CONSTITUTIONAL: Denies fever GASTROINTESTINAL: Denies abdominal pain, nausea, vomiting All systems reviewed & are unremarkable except as noted in HPI and below Exam Const: General: cooperative, healthy appearing and comfortable Nutritional Appearance: overweight Orientation/consciousness: oriented to person, oriented to place and oriented to time Resp: Effort & Inspection: normal respiratory effort Cardio: Rate: regular rate Rhythm: regular rhythm Heart sounds: S1 normal heart sound present and S2 normal heart sound present GI: Inspection: normal to inspection, abdominal wall ecchymosis and incision ELECTROCARDIOGRAPH OPERATOR - PN: Obj Data Vital Signs Vital Signs: Vital Signs - 24 hr 08/01/24 00:45 08/01/24 01:44 08/01/24 01:13 Temperature 98.2 F Pulse Rate 115 H 104 H 110 H Respiratory Rate 18 13 Blood Pressure 115/55 L 117/55 L Pulse Oximetry 100 100 Oxygen Delivery Room Air 08/01/24 01:16 08/01/24 01:42 08/01/24 01:46 Temperature Pulse Rate 112 H 105 H 103 H Respiratory Rate 10 L 9 L 12 Blood Pressure 107/54 L 100/53 L 110/54 L Pulse Oximetry 99 100 99 Oxygen Delivery 08/01/24 02:01 08/01/24 02:39 08/01/24 02:56 Temperature 99.0 F 98.7 F Pulse Rate 110 H 109 H 106 H Respiratory Rate 12 13 12 Blood Pressure 105/54 L 125/64 122/68 Pulse Oximetry 100 100 100 Oxygen Delivery 08/01/24 03:57 08/01/24 05:01 08/01/24 05:14 Temperature Pulse Rate 104 H 100 Respiratory Rate Blood Pressure 114/58 L 117/61 Pulse Oximetry 98 94 95 Oxygen Delivery 08/01/24 05:19 08/01/24 05:23 08/01/24 05:24 Temperature Pulse Rate 105 H Respiratory Rate Blood Pressure 120/57 L Pulse Oximetry 94 98 Oxygen Delivery 08/01/24 05:29 08/01/24 05:34 08/01/24 05:39 Temperature Pulse Rate Respiratory Rate Blood Pressure Pulse Oximetry 90 97 97 Oxygen Delivery 08/01/24 05:40 08/01/24 03:56 08/01/24 04:56 Temperature 99.5 F 99.2 F Pulse Rate 99 103 H 106 H Respiratory Rate 14 14 Blood Pressure 115/62 114/58 L 117/61 Pulse Oximetry 98 94 Oxygen Delivery 08/01/24 05:22 08/01/24 03:07 08/01/24 05:40 Temperature 99.4 F 99.5 F Pulse Rate 96 100 Respiratory Rate 12 14 Blood Pressure 120/57 L 115/62 Pulse Oximetry 94 97 Oxygen Delivery Room Air Intake/Output Intake/Output: Intake & Output 07/29/24 07/30/24 07/31/24 08/01/24 23:59 23:59 23:59 23:59 Intake Total 350.5 Balance 350.5 Meds/Results Medications: Active Medications Generic Name Dose Route Start Last Admin Trade Name Freq PRN Reason Stop Dose Admin Sodium Chloride 250 mls @ 30 mls/hr 08/01/24 01:22 08/01/24 01:37 Normal Saline Iv IV CONT 08/01/24 09:41 0 mls/hr .[id number] STA Infusion Labs 08/01/24 01:07 08/01/24 01:07 Labs: Laboratory Results - last 24 hr 08/01/24 08/01/24 01:07 01:22 WBC 6.4 RBC 1.64 L Hgb 5.1 L* Hct 15.3 L* MCV 93.3 MCH 31.1 MCHC 33.3 RDW 12.7 Plt Count 91 L D MPV 12.7 H Immature Gran % (Auto) 0.9 H Neut % (Auto) 64.3 Lymph % (Auto) 28.1 [place] % (Auto) 5.7 Eos % (Auto) 0.8 Baso % (Auto) 0.2 Lymph # (Auto) 1.81 [place] # (Auto) 0.4 Eos # (Auto) 0.1 Baso # (Auto) 0.0 Abs Immat Gran (auto) 0.06 H Absolute Neuts (auto) 4.1 Absolute Nucleated RBC 0.020 H Nucleated RBC % 0.3 H Platelet Estimate Adequate % Immature Plt Fraction 13.2 H Hypochromasia 2+ Anisocytosis 1+ Schistocytes None seen PT 12.8 INR 0.9 APTT 25.1 Sodium 135 L Potassium 3.5 Chloride 105 Carbon Dioxide 27 Anion Gap 3 L BUN 10 D Creatinine 0.60 L Estim Creat Clear Calc 145 Estimated GFR > 60 Glucose 107 Calcium 8.3 L Total Bilirubin 0.3 AST 24 ALT 26 Alkaline Phosphatase 52 Total Protein 6.0 L Albumin 3.5 Blood Type A Positive Antibody Screen Negative Crossmatch See Detail
--- NOTE | 2024-08-01 06:34 | P.DS_ITS ---
DS: Admitting Diagnosis Discharge Date 2023 Admitting Diagnosis anemia DS: Discharge Diagnosis Discharge Diagnosis (1) Anemia: Qualifiers: Anemia type: unspecified type Qualified Code(s): D64.9 - Anemia, unspecified Code(s): D64.9 - Anemia, unspecified Status: Acute (2) Status post laparoscopy: Code(s): Z98.890 - Other specified postprocedural states Status: Acute DS: Summary Hospital Course Reason for hospitalization: patient was admitted with tachycardia and severe anemia. She had previous laparoscopy with hemato peritoneum and evacuation removal of a left ectopic . Hospital Course: Patient's hospital course unremarkable. She received 2 doses of packed red blood cells. She improved. She had a small ecchymosis in the left lower quadrant which did not increase in size over the time she was watched. She was up, voiding without difficulty, eating regular diet, ambulating, and generally without complaints. Time Spent with Patient Time attestation: Total time spent providing and/or coordinating discharge services: Exam Const: General: cooperative, healthy appearing, comfortable and overweight Orientation/consciousness: oriented to person, oriented to place and oriented to time HENMT: Head: normal to inspection Resp: Effort & Inspection: normal respiratory effort Cardio: Rate: regular rate Rhythm: regular rhythm Heart sounds: S1 normal heart sound present and S2 normal heart sound present GI: Inspection: normal to inspection, abdominal wall ecchymosis and incision ( Wounds are all clean dry and intact) DS: Data Data Completed and Pending Labs on day of discharge: Labs from last 24 hours 08/01/24 08/01/24 01:22 01:07 WBC 6.4 RBC 1.64 L Hgb 5.1 L* Hct 15.3 L* MCV 93.3 MCH 31.1 MCHC 33.3 RDW 12.7 Plt Count 91 L D MPV 12.7 H Immature Gran % (Auto) 0.9 H Neut % (Auto) 64.3 Lymph % (Auto) 28.1 [place] % (Auto) 5.7 Eos % (Auto) 0.8 Baso % (Auto) 0.2 Lymph # (Auto) 1.81 [place] # (Auto) 0.4 Eos # (Auto) 0.1 Baso # (Auto) 0.0 Abs Immat Gran (auto) 0.06 H Absolute Neuts (auto) 4.1 Absolute Nucleated RBC 0.020 H Nucleated RBC % 0.3 H Platelet Estimate Adequate % Immature Plt Fraction 13.2 H Hypochromasia 2+ Anisocytosis 1+ Schistocytes None seen PT 12.8 INR 0.9 APTT 25.1 Sodium 135 L Potassium 3.5 Chloride 105 Carbon Dioxide 27 Anion Gap 3 L BUN 10 D Creatinine 0.60 L Estim Creat Clear Calc 145 Estimated GFR > 60 Glucose 107 Calcium 8.3 L Total Bilirubin 0.3 AST 24 ALT 26 Alkaline Phosphatase 52 Total Protein 6.0 L Albumin 3.5 Blood Type A Positive Antibody Screen Negative Crossmatch See Detail Discharge Plan Discharge Attending physician on discharge: Stevenson Germain Discharging Clinician: Stevenson Germain Anticipated Discharge Date/Time: 08/01/24 19:00 Patient Disposition: Home, Self-Care Activity: as tolerated Diet: as tolerated Discharge Instructions: OB ANTEPARTUM DISCHARGE INSTRUCTIONS This information is given to help you properly care for yourself at home after your discharge from the hospital. Follow these instructions until your doctor tells you otherwise. DIET: Eat Three Well Balanced Meals per Day Drink at Least Eight 8-Ounce Glasses of Caffeine-Free Beverages Daily ACTIVITY: As Tolerated RETURN TO LABOR AND DELIVERY IF YOU HAVE: Additional Reasons to Return to Labor and Delivery: Dizziness, blurry vision, abdominal pain, fever. Pain, redness, swelling in calves. OTHER INSTRUCTIONS: FOLLOW-UP CARE: Keep Next Scheduled Appointment To see Dr. Ynes Villegas on August 05, 2024. Valuables released to patient or family? N/A Medications from home returned to patient? N/A I Acknowledge Receipt of and Understand the Above Instructions IF YOU HAVE ANY QUESTIONS REGARDING THESE INSTRUCTIONS, PLEASE CALL [phone]. IF PROBLEMS ARISE, CALL YOUR PROVIDER. IF EMERGENCY CARE IS NEEDED, [facility] EMERGENCY ROOM IS AVAILABLE 24 HOURS A DAY. Stand Alone Forms: General Discharge Information Follow-up/Referrals: Stevenson Germain MD [Physician] - Discharge Medications: Continued labetalol 200 mg tablet 200 mg PO DAILY clotrimazole-betamethasone 1-0.05 % cream 1 applic TOPICAL TID ferrous sulfate 325 mg (65 mg iron) tablet 325 mg PO DAILY Qty: 30 0RF oxycodone-acetaminophen [Percocet] 5-325 mg tablet 1 - 2 tablet PO Q6H PRN (Reason: pain) Qty: 30 0RF Date of admission: 08/01/24 01:40 Primary Care Provider: PHYSICIAN,FIREARMS INSTRUCTOR Admitting Provider: Stevenson Germain Attending physician on admission: Stevenson Germain Condition: Stable
[2024-08-01] MEDS: ACETAMINOPHEN 500 MG TABLET 1000 MG PO (06:59)
[2024-08-01] MEDS: diphenhydrAMINE HCl CAP 25 MG CAPSULE 50 MG PO (07:00)
--- NOTE | 2024-08-01 08:28 | PC.NURSE ---
Accidentally double charted volume of 2nd unit of PRBCs. Total intake for bag #2 PRBCs should be 255ml, not 510ml.
[2024-08-01 09:59] LABS: Basophils Percent Auto 0.2 % (0.2-1.2); Eosinophils Absolute Auto 0.1 K/mm3 (0-0.3); Eosinophils Percent Auto 1.1 % (0-4.4); Immature Granulocyte Absolute 0.07 K/mm3 (0.00-0.031); Immature Granulocyte Percent A 1.1 % (0-0.5); Immature Platelet Fraction Pct 11.2 % (0.9-11.2); Lymphocytes Absolute Auto 1.67 K/mm3 (0.9-3.2); Lymphocytes Percent Auto 25.3 % (18.3-44.2); Mean Corpuscular HGB Conc 33.7 g/dl (32-36); Mean Corpuscular Volume 91.9 fl (80-100); Mean Platelet Volume 12.6 fl (7.4-10.4); Monocytes Absolute Auto 0.3 K/mm3 (0.1-0.6); Monocytes Percent Auto 5.2 % (2.6-8.5); Neutrophils Absolute Auto 4.4 K/mm3 (1.3-6.7); Neutrophils Percent Auto 67.1 % (45.5-73.1); Nucleated Red Blood Cells Perc 0.3 % (0.0-0.2); Platelet Count Result 91 k/mm3 (150-375); Red Cell Distribution Width 13.1 % (11.5-14.5); White Blood Count 6.6 K/mm3 (4.5-10.0)
[2024-08-01 10:22] LABS: Hematocrit 19.3 % (37.0-47.0); Hemoglobin 6.5 g/dL (12.0-15.0)
--- NOTE | 2024-08-01 10:39 | PC.NURSE ---
Patient requesting abd binder before getting up. Binder given.
--- NOTE | 2024-08-01 11:49 | PC.NURSE ---
1145--Pt. to u/s via wheelchair, order obtained from Dr. Villagomez that it is okay to do transvaginal u/s if necessary per u/s tech.
--- NOTE | 2024-08-01 13:23 | PC.NURSE ---
1250--Report to Dr. Villagomez re: u/s results, PRBC's transfusing at this time, and v.s. Orders to place abdominal binder on pt., allow her to eat regular diet, and check H&H after completing last unit of PRBC's
[2024-08-01] MEDS: TUBING, BLOOD PLUM PUMP TUBING 1 EACH XX ×2 (17:32)
[2024-08-01 17:59] LABS: Hematocrit 26.1 % (37.0-47.0); Hemoglobin 8.8 g/dL (12.0-15.0)
--- NOTE | 2024-08-01 18:18 | PC.NURSE ---
8715--Report to Dr. Villagomez re: H&H results, pt. feeling better, and bruising on lower abdomen stable and not outside of markings at this time. Orders that pt. may be DC'd home if she would like to and f/u in office on Monday.
== END 2024-08-01 18:57 | disposition home or self-care (01) ==
LOC: ANHED 02:00 → ANHOBPP 02:25
PROVIDERS: Admitting Provider Obstetrics & Gynecology; Emergency Provider Physician Assistant; Visit Provider Obstetrics & Gynecology
DX: D64.9 Anemia, unspecified (principal); R00.0 Tachycardia, unspecified; R53.83 Other fatigue; R58 Hemorrhage, not elsewhere classified; Z79.899 Other long term (current) drug therapy
CPT/HCPCS: 36415; 36430; 76830; 76856; 80053; 85014; 85018; 85025; 85055; 85610; 85730; 86850; 86900; 86901; 86923; 96374; 99285; A9270; G0378; J2405; J7050; P9016